=== PATIENT | male | born 1980 | race Caucasian/White ===

== ENCOUNTER 2016-08-05 16:20 | Emergency (ER) | payer OTHER ==
[~2016-08-05] VITALS: Ht 170.2 cm; Wt 115.8 kg
[2016-08-05 16:27] VITALS: TEMP 37.1; Ht 170.2 cm; Wt 115.8 kg
[2016-08-05] MEDS ORDERED: CYAN500S5 PO (17:07)
[2016-08-05] MEDS ORDERED: MISCCAP80 PO (17:08)
[2016-08-05] MEDS ORDERED: MULT-506 PO (17:09)
[2016-08-05 17:14] LABS: BASO % 0.3 %; BASO ABS # 0.02 K/uL (0-0.2); COMPLETE YES; EOS % 1.3 %; HEMATOCRIT 40.3 % (42-52); IG% 0.4 %; LYMPH ABS # 2.91 K/uL (1.2-3.4); MEAN CELL VOLUME 86.3 fL (80-100); MEAN CORPUSCULAR HEMOGLOBIN 29.8 pg (25-34); MEAN CORPUSCULAR HGB CONC 34.5 g/dl (32-36); MEAN PLATELET VOLUME 9.3 fL (7.4-10.4); MONO % 8.5 %; NEUT % 51.5 %; PLATELET COUNT 293 K/uL (130-400); RED BLOOD COUNT 4.67 M/uL (4.7-6.1); WHITE BLOOD COUNT 7.66 K/uL (4.8-10.8)
[2016-08-05] MEDS ORDERED: [UNRECOGNIZED DRUG - OTHER] PO (17:14)
[2016-08-05] MEDS ORDERED: GARC1TAB PO (17:15)
[2016-08-05 17:18] LABS: INR 0.9 (0.9-1.1); PARTIAL THROMBOPLASTIN RATIO 1.1; PROTHROMBIN TIME (PATIENT) 10.1 SECONDS (9.0-12.0)
[2016-08-05 17:30] LABS: BUN/CREATININE RATIO 16.5 (10-20); CREATININE 0.83 mg/dl (0.60-1.40); POTASSIUM 3.8 mmol/L (3.5-5.1)
[2016-08-05 17:33] LABS: ALB/GLOB RATIO 0.9 (0.9-2)
--- NOTE | 2016-08-05 17:51 | EMERGENCY ROOM VISIT NOTE ---
ED Visit Note First contact with patient: 16:36 Patient evaluated with physician assistant front end manager. He is noted to have gradual onset of a symmetric lower extremity nonblanching rash characterized by pinpoint to roughly 1 cm sized lesions which are symmetrical. He notes he had a fever several days ago before onset of the rash. He took one dose of a leftover antibiotic after he fever and rash story started. He denies any other complaints. There is no murmur on exam. I agree with plan for prompt outpatient follow-up with the understanding the patient should return for any worsening worrisome symptoms. Consideration given to vasculitis. Blood cultures are pending.
[2016-08-05 18:08] LABS: C-REACTIVE PROTEIN 7.25 mg/dl (0-0.29)
[2016-08-05 18:35] VITALS: BP 137/78; PULSE 63; O2SAT 100
[2016-08-05] MEDS ORDERED: DOXYCYCLINE HYCLATE 100 MG CAP PO STA (18:58)
[2016-08-05 19:07] LABS: LYME DISEASE AB IGG NEG (NEG); LYME DISEASE AB IGM NEG (NEG)
[2016-08-05] MEDS ORDERED: DOXY100C PO (19:08)
--- NOTE | 2016-08-05 19:09 | EMERGENCY ROOM VISIT NOTE ---
History First contact with patient: 16:36 Chief Complaint: RASH Stated Complaint: LEG RASH, BURN BOTH LEGS, LITTLE ON BELLY History of Present Illness The patient is a 35 year old male who presents to the Emergency Room with complaints of a rash which began 2 days ago. The patient states that he had flulike symptoms 4-5 days ago. He states that those symptoms resolved, and 2 days later he developed a rash. He states that 2 days ago, there were a few red spots on his legs. Since then, he has developed multiple red areas on both of his legs as well as on his lower abdomen. He states that the legs burn slightly, but denies significant pain. He denies any itching. He denies any new medications, new foods, or new environmental exposures. He denies any history of a similar rash. He denies any fevers/chills, chest pain, shortness of breath, abdominal pain, nausea or vomiting. Review of Systems A complete 10-point Review of Systems was discussed with the patient, with pertinent positives and negatives listed in the History of Present Illness. All remaining Review of Systems questions can be considered negative unless otherwise specified. Social History Smoking Status: Former Smoker Current/Historical Medications Scheduled Cyanocobalamin (Vitamin B-12), 500 MCG PO DAILY Doxycycline Hyclate (Vibramycin), 100 MG PO BID Garcinia Cambogia-Chromium (Garcinia Cambogia), 1 TAB PO TID Multivitamin (Multivitamin), 1 TAB PO DAILY Probiotic Product (Probiotic), 1 CAP PO DAILY [Argon Max], 1 TAB PO BID Allergies Coded Allergies: No Known Allergies (Unverified , 08/05/16) Physical Exam Vital Signs Date Time Temp Pulse Resp B/P Pulse Ox O2 Delivery O2 Flow Rate FiO2 08/05/16 18:35 63 16 137/78 100 Room Air 08/05/16 16:27 37.1 76 18 142/90 98 Room Air Physical Exam VITALS: Vitals are noted on the nurse's note and reviewed by myself. Vital signs stable. GENERAL: This is a 35-year-old male, in no acute distress, nondiaphoretic, well- developed well-nourished. SKIN: There is an erythematous, maculopapular nonblanching rash to bilateral lower extremities. There are larger macules and papules in the distal legs. There are a few lesions with a vesicular appearance. The rash extends up both entire legs and onto the lower abdomen slightly. No drainage. HEENT: Normocephalic. PERRLA. EOMI. Nares patent. Mucous membranes moist. Neck is supple without nuchal rigidity. HEART: Regular rate and rhythm without murmurs gallops or rubs. LUNGS: Clear to auscultation bilaterally without wheezes, rales or rhonchi. NEURO: Patient was alert and oriented to person place and time. Normal sensation to light and sharp touch. Medical Decision & Procedures Laboratory Results 08/05/16 16:56 Red Blood Count 4.67, Mean Corpuscular Volume 86.3, Mean Corpuscular Hemoglobin 29.8, Mean Corpuscular Hemoglobin Concent 34.5, Mean Platelet Volume 9.3, Neutrophils (%) (Auto) 51.5, Lymphocytes (%) (Auto) 38.0, Monocytes (%) (Auto) 8.5, Eosinophils (%) (Auto) 1.3, Basophils (%) (Auto) 0.3, Neutrophils # (Auto) 3.95, Lymphocytes # (Auto) 2.91, Monocytes # (Auto) 0.65, Eosinophils # (Auto) 0.10, Basophils # (Auto) 0.02 08/05/16 16:56 Test 08/05/16 16:56 White Blood Count 7.66 K/uL (4.8-10.8) Red Blood Count 4.67 M/uL (4.7-6.1) Hemoglobin 13.9 g/dL (14.0-18.0) Hematocrit 40.3 % (42-52) Mean Corpuscular Volume 86.3 fL (80-100) Mean Corpuscular Hemoglobin 29.8 pg (25-34) Mean Corpuscular Hemoglobin Concent 34.5 g/dl (32-36) Platelet Count 293 K/uL (130-400) Mean Platelet Volume 9.3 fL (7.4-10.4) Neutrophils (%) (Auto) 51.5 % Lymphocytes (%) (Auto) 38.0 % Monocytes (%) (Auto) 8.5 % Eosinophils (%) (Auto) 1.3 % Basophils (%) (Auto) 0.3 % Neutrophils # (Auto) 3.95 K/uL (1.4-6.5) Lymphocytes # (Auto) 2.91 K/uL (1.2-3.4) Monocytes # (Auto) 0.65 K/uL (0.11-0.59) Eosinophils # (Auto) 0.10 K/uL (0-0.5) Basophils # (Auto) 0.02 K/uL (0-0.2) RDW Standard Deviation 42.0 fL (36.4-46.3) RDW Coefficient of Variation 13.3 % (11.5-14.5) Immature Granulocyte % (Auto) 0.4 % Immature Granulocyte # (Auto) 0.03 K/uL (0.00-0.02) Erythrocyte Sedimentation Rate 48 mm/hr (0-14) Prothrombin Time 10.1 SECONDS (9.0-12.0) Prothromb Time International Ratio 0.9 (0.9-1.1) Activated Partial Thromboplast Time 29.5 SECONDS (21.0-31.0) Partial Thromboplastin Ratio 1.1 Anion Gap 7.0 mmol/L (3-11) Est Creatinine Clear Calc Drug Dose 149.6 ml/min Estimated GFR () 131.2 Estimated GFR (Non- 113.2 BUN/Creatinine Ratio 16.5 (10-20) Calcium Level 9.0 mg/dl (8.5-10.1) Total Bilirubin 0.4 mg/dl (0.2-1) Aspartate Amino Transf (AST/SGOT) 17 U/L (15-37) Alanine Aminotransferase (ALT/SGPT) 33 U/L (12-78) Alkaline Phosphatase 87 U/L (45-117) C-Reactive Protein 7.25 mg/dl (0-0.29) Total Protein 7.9 gm/dl (6.4-8.2) Albumin 3.7 gm/dl (3.4-5.0) Globulin 4.2 gm/dl (2.5-4.0) Albumin/Globulin Ratio 0.9 (0.9-2) Procalcitonin 0.08 ng/mL (0-0.5) Lyme Disease IgG Antibody NEG (NEG) Lyme Disease IgM Antibody NEG (NEG) Medications Administered Medications (Trade) Dose Ordered Sig/Gabbi Route Start Time Stop Time Status Last Admin Dose Admin Doxycycline Hyclate (Vibramycin Cap) 200 mg NOW STAT PO 08/05/16 18:58 08/05/16 19:00 DC 08/05/16 19:16 200 MG Medical Decision Differential diagnosis includes allergic dermatitis, viral exanthem, ITP, TTP, HSP, endocarditis, vasculitis, Lyme disease, among others. The patient was evaluated as above. Labs were drawn and IV access was obtained. The patient is a 35-year-old male who presents today complaining of a rash to bilateral lower extremities which is extending onto his lower abdomen. The rash does not kurt. He does report he had symptoms of a flulike illness earlier this week, but they have now resolved. Labs revealed no leukocytosis, anemia or thrombocytopenia. LFTs were within normal limits. Dr. Alvares also examined the patient and recommended drawing blood cultures to rule out endocarditis. The patient does not have a murmur or chest pain and I feel that endocarditis is unlikely. An ESR and CRP were performed and were elevated, but this is a very nonspecific finding. I feel the patient's symptoms are likely secondary to vasculitis. He will be placed on doxycycline to prevent any secondary infection. He was instructed to follow-up closely with his primary care provider this week or return here for worsening symptoms. Based on the patient's presentation, lab results, and imaging studies, I feel the patient is stable for outpatient treatment. Discharge instructions were reviewed with the patient. The patient verbalized understanding of my assessment and treatment plan and was discharged home in good condition. Impression Primary Impression: Rash and nonspecific skin eruption Departure Information Dispostion Home / Self-Care Condition GOOD Prescriptions Doxycycline Hyclate (VIBRAMYCIN) 100 Mg Cap 100 MG PO BID for 10 Days, #20 CAP Prov: Neena Miller ., AMBER 08/05/16 Referrals No Doctor, Assigned (PCP) Patient Instructions [facility] Additional Instructions You were prescribed doxycycline to be taken twice daily for the next 10 days. This is an antibiotic. All antibiotics have the potential to cause diarrhea. Stop this medication and contact a medical provider if you were to develop any significant adverse side effects including: wheezing, shortness of breath, passing out, vomiting, or a diffuse rash. Always take antibiotics as directed and COMPLETE the ENTIRE course regardless of the improvement of your symptoms. You must follow-up with your primary care provider within 2 days for further evaluation. If your rash worsens or you develop fevers or any other new/concerning symptoms , return to the emergency Department for further evaluation.
[2016-08-10] MEDS ORDERED: CETI10TA10 PO (17:56)
[2016-08-10] MEDS ORDERED: METH4PAK PO (17:56)
[2016-08-18] MEDS ORDERED: PRED10TA PO (13:34)
[2016-08-18] MEDS ORDERED: OMEP20TA PO (13:34)
[2016-08-18] MEDS ORDERED: OXYC-57 PO (13:34)
== END 2016-08-05 19:25 | disposition home or self-care (01) ==
LOC: C.EDB 16:22 → C.EDD 19:25
DX: R21 Rash and other nonspecific skin eruption (principal); Z87.891 Personal history of nicotine dependence

== ENCOUNTER 2016-08-09 12:23 | Inpatient (IN) | payer OTHER ==
[~2016-08-09] VITALS: Ht 170.2 cm; Wt 114.8 kg
[~2016-08-09 12:23] MED LIST: CYAN500S5 PO; DOXY100C PO; GARC1TAB PO; MISCCAP80 PO; MULT-506 PO; [UNRECOGNIZED DRUG - OTHER] PO
[2016-08-09] MEDS ORDERED: KETOROLAC TROMETHAMINE 30 MG/ML VIAL IV STA (13:32)
[2016-08-09] MEDS ORDERED: SODIUM CHLORIDE 0.9% 1000ML 1,000 ML IV STA (13:32)
[2016-08-09] MEDS ORDERED: METHYLPREDNISOLONE 125 MG VIAL IV STA (13:32)
--- NOTE | 2016-08-09 13:33 | EMERGENCY ROOM VISIT NOTE ---
History Report prepared by Juanita: Richard Espino Under the Supervision of: Dr. Jah Hopper M.D. First contact with patient: 13:14 Chief Complaint: RASH Stated Complaint: RASH W/MORE PAIN AND RASH IS SPREADING History of Present Illness The patient is a 35 year old male who presents to the Emergency Room with complaints of a worsening rash for the past couple of days. The patient states that the rash started on the bottom of his legs, and it has spread up to his chest. The patient states that he saw a doctor two days ago, and they said that there was blood in his urine. He states that he was given steroids and antibiotics, and he has not taken the steroids yet. The patient additionally complains of muscle pains in both arms and his thighs. He additionally states that he was sick two days ago, and he was vomiting and had a fever. Source of History: patient Onset: a couple of days ago Position: other (global) Quality: other (rash) Associated Symptoms: + urinary symptoms Review of Systems See HPI for pertinent positives & negatives. A total of 10 systems reviewed and were otherwise negative. Past Medical & Surgical Medical Problems: (1) Depression (2) Rash Family History Cancer Heart disease Hypertension Kidney disease Kidney stones Social History Smoking Status: Never Smoker Alcohol Use: occasionally Housing Status: lives with friends Occupation Status: employed Current/Historical Medications Scheduled Cyanocobalamin (B12), 500 MCG PO DAILY Doxycycline Hyclate (Vibramycin), 100 MG PO BID Garcinia Cambogia-Chromium (Garcinia Cambogia), 2 TABS PO AC Multiple Vitamins W/ Minerals (Multivitamin Adults), 1 TAB PO DAILY Allergies Coded Allergies: No Known Allergies (Unverified , 08/09/16) Physical Exam Vital Signs Date Time Temp Pulse Resp B/P Pulse Ox O2 Delivery O2 Flow Rate FiO2 08/09/16 15:00 37.0 86 18 133/81 Room Air 08/09/16 14:27 76 130/79 98 Room Air 08/09/16 14:18 76 08/09/16 12:28 36.8 97 18 127/76 98 Room Air Physical Exam GENERAL: Patient is a healthy-appearing well-nourished HEAD: Normocephalic atraumatic EYES: Ocular movements intact pupils equal and react to light OROPHARYNX mucous membranes are moist no exudates present no erythema or edema present NECK: Supple no nuchal rigidity CHEST: Good equal expansion LUNGS: Clear and equal to auscultation CARDIAC: Normal S1 and S2 ABDOMEN: Soft nontender no guarding BACK: No CVA tenderness EXTREMITIES: No pain upon palpation normal muscle strength in all groups no clubbing cyanosis or edema NEURO: Patient is following commands is answering questions appropriately. Alert and oriented x3 Cranial Nerves 2-12 grossly intact SKIN: Petechial like rash that is heavier on the legs but spares the soles of the feet and the palms of the hands. Non-urticarial Medical Decision & Procedures Laboratory Results Test 08/09/16 13:50 Immature Granulocyte % (Auto) 0.4 % White Blood Count 7.78 K/uL (4.8-10.8) Red Blood Count 4.55 M/uL (4.7-6.1) Hemoglobin 13.7 g/dL (14.0-18.0) Hematocrit 40.0 % (42-52) Mean Corpuscular Volume 87.9 fL (80-100) Mean Corpuscular Hemoglobin 30.1 pg (25-34) Mean Corpuscular Hemoglobin Concent 34.3 g/dl (32-36) Platelet Count 346 K/uL (130-400) Mean Platelet Volume 8.9 fL (7.4-10.4) Neutrophils (%) (Auto) 58.7 % Lymphocytes (%) (Auto) 29.4 % Monocytes (%) (Auto) 9.9 % Eosinophils (%) (Auto) 1.2 % Basophils (%) (Auto) 0.4 % Neutrophils # (Auto) 4.57 K/uL (1.4-6.5) Lymphocytes # (Auto) 2.29 K/uL (1.2-3.4) Monocytes # (Auto) 0.77 K/uL (0.11-0.59) Eosinophils # (Auto) 0.09 K/uL (0-0.5) Basophils # (Auto) 0.03 K/uL (0-0.2) Immature Granulocyte # (Auto) 0.03 K/uL (0.00-0.02) Erythrocyte Sedimentation Rate 46 mm/hr (0-14) Total Bilirubin 0.4 mg/dl (0.2-1) Direct Bilirubin < 0.1 mg/dl (0-0.2) Aspartate Amino Transf (AST/SGOT) 16 U/L (15-37) Alanine Aminotransferase (ALT/SGPT) 27 U/L (12-78) Alkaline Phosphatase 86 U/L (45-117) C-Reactive Protein 13.10 mg/dl (0-0.29) Total Protein 7.6 gm/dl (6.4-8.2) Albumin 3.4 gm/dl (3.4-5.0) Medications Administered Medications (Trade) Dose Ordered Sig/Gabbi Route Start Time Stop Time Status Last Admin Dose Admin Methylprednisolone Sodium Succinate (Solu-Medrol IV) 125 mg NOW STAT IV 08/09/16 13:32 08/09/16 13:34 DC 08/09/16 13:51 125 MG Ketorolac Tromethamine 30 mg 30 mg NOW STAT IV 08/09/16 13:32 08/09/16 13:34 DC 08/09/16 13:51 30 MG Sodium Chloride (Nss 1000ml) 1,000 ml @ 999 mls/hr Q1H1M STAT IV 08/09/16 13:32 08/09/16 14:32 DC 08/09/16 13:53 999 MLS/HR ED Course 1314: Past medical records reviewed. The patient was evaluated in room B6. A complete history and physical examination was performed. Medical Decision Differential diagnosis: Etiologies such as contact dermatitis, viral exanthem, urticaria, allergic reaction, Salamanca-John syndrome, toxic epidermal necrolysis, erythema multiforme, cellulitis, scabies, HSV, varicella, zoster, eczema, staph scalded skin syndrome, fungal infection, as well as others were entertained. This is a 35-year-old male who presents emergency department complaining of a painful rash that has progressed over the past several days. The rash appears to be a vasculitis on examination. For this reason the patient was started on Solu-Medrol. The patient is having pain walking around therefore did discuss the case with hospitalist who agreed to admit the patient. Patient was in agreement with the treatment plan. Impression Primary Impression: Rash Scribe Attestation The scribe's documentation has been prepared under my direction and personally reviewed by me in its entirety. I confirm that the note above accurately reflects all work, treatment, procedures, and medical decision making performed by me. Departure Information Dispostion Home / Self-Care Referrals Ashia Montero D.O. (PCP) Patient Instructions [facility]
[2016-08-09 14:15] LABS: BASO % 0.4 %; BASO ABS # 0.03 K/uL (0-0.2); COMPLETE YES; EOS % 1.2 %; IG% 0.4 %; LYMPH % 29.4 %; LYMPH ABS # 2.29 K/uL (1.2-3.4); MEAN CELL VOLUME 87.9 fL (80-100); MEAN CORPUSCULAR HEMOGLOBIN 30.1 pg (25-34); MEAN CORPUSCULAR HGB CONC 34.3 g/dl (32-36); MEAN PLATELET VOLUME 8.9 fL (7.4-10.4); MONO % 9.9 %; NEUT % 58.7 %; PLATELET COUNT 346 K/uL (130-400); RED BLOOD COUNT 4.55 M/uL (4.7-6.1); WHITE BLOOD COUNT 7.78 K/uL (4.8-10.8)
[2016-08-09 14:33] LABS: BUN/CREATININE RATIO 15.5 (10-20); CREATININE 0.88 mg/dl (0.60-1.40); POTASSIUM 4.2 mmol/L (3.5-5.1)
[2016-08-09 15:00] VITALS: BP 133/81; PULSE 86; TEMP 37; Ht 170.2 cm; Wt 114.8 kg
[2016-08-09 15:43] LABS: ALKALINE PHOSPHATASE 86 U/L (45-117); ALT/SGPT 27 U/L (12-78); AST/SGOT 16 U/L (15-37)
[2016-08-09] MEDS ORDERED: ONDANSETRON INJ 2 MG/ML 2 ML VIAL IV PRN (16:00)
[2016-08-09] MEDS ORDERED: CYAN100073 PO (16:09)
[2016-08-09] MEDS ORDERED: MULT-922 PO (16:09)
[2016-08-09] MEDS ORDERED: GARC1TAB PO (16:09)
[2016-08-09] MEDS: SODIUM CHLORIDE 0.9% 1000ML 1,000 ML IV SCH (16:28)
[2016-08-09] MEDS ORDERED: PIPERACILLIN/TAZOBACTAM 4.5 GM/100ML D5W IV SCH (16:30)
[2016-08-09] MEDS ORDERED: PIPERACILL/TAZOBAC CONSULT ACTIVE PRN (16:30)
[2016-08-09 17:03] LABS: URINE APPEARANCE TURBID (CLEAR); URINE COLOR DK YELLOW; URINE NITRITE NEG (NEG); URINE SPECIFIC GRAVITY 1.031 (1.000-1.030); UROBILINOGEN NEG (NEG)
[2016-08-09 17:13] LABS: URINE BILIRUBIN NEG (NEG)
[2016-08-09 17:14] LABS: MANUAL MICROSCOPIC REQUIRED? NO; REVIEW REQ? NO
--- NOTE | 2016-08-09 17:26 | History and Physical ---
History & Physical Date & Time of Service: Aug 09, 2016 at 16:10 Chief Complaint: Rash W/More Pain And Rash Is Spreading Primary Care Physician: Juan Montero D.O. History of Present Illness Source: patient This is a 35 y/o male with PMHx as outlined below who presents to the ED c/o persistent rash x 6 days. Pt reports that 6 days ago he noticed a rash to the medial aspect of his L knee. Over the next couple days the rash spread until it completely covered both legs. He describes the rash as "red spots" with some blistering. The rash causes a "burning" pain but it is not itchy. His sxs are assoc with low grade fever, fatigue, arthralgias/myalgias and mild ankle swelling. Pt was seen in the ED 4 days ago. He was discharged home with doxycycline and PCP f/u. Pt saw his PCP 2 days ago who checked bloodwork. CMP, KENNETH,CK and peripheral smear were unremarkable however pt did have blood in his urine. Pts PCP prescribed a steroid this morning and arranged for dermatology and infectious disease appointments. Pt reports that he has not started the steroid yet. The rash has now progressed to bilat upper arms and trunk. He denies any involvement of the palms of his hands or the soles of his feet. He reports that 2 days prior to developing the rash he had a 48 hr stomach bug with fevers/chills and N/V. Pt denies any known allergies, recent medication change or h/o autoimmune diseases. He denies IVDU or h/o having sex with men. Pt denies fever/chills, diaphoresis, chest pain, palpitations, SOB, wheezing, abd pain, N/V, bowel or bladder issues, LE edema ,calf pain, lightheadedness/ dizziness. In the ED, vitals are stable. Pt is afebrile with no leukocytosis. Pt will be admitted for further evaluation and treatment. 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[employer]) Allergies Coded Allergies: No Known Allergies (Unverified , 08/09/16) Home Medications Scheduled Cyanocobalamin (B12), 500 MCG PO DAILY Doxycycline Hyclate (Vibramycin), 100 MG PO BID Garcinia Cambogia-Chromium (Garcinia Cambogia), 2 TABS PO AC Multiple Vitamins W/ Minerals (Multivitamin Adults), 1 TAB PO DAILY Review of Systems Constitutional: + chills, + fatigue, + fever (low grade), No sweats, No weakness Eyes: No worsening of vision ENT: No hearing loss Respiratory: No cough, No shortness of breath Cardiovascular: No chest pain, No claudication, No edema Abdomen: + nausea (resolved), + vomiting (resolved), No GI bleeding, No constipation, No diarrhea, No pain Musculoskeletal: + joint pain (bilat ankles with assoc swelling), + muscle pain , No calf pain Genitourinary - Male: No dysuria Neurologic: No weakness Psychiatric: No depression symptoms Endocrine: + fatigue Hematologic / Lymphatic: No abnormal bleeding/bruising Integumentary: + new/changing skin lesions (see HPI) Physical Exam Vital Signs Date Time Temp Pulse Resp B/P Pulse Ox O2 Delivery O2 Flow Rate FiO2 08/09/16 14:27 76 130/79 98 Room Air 08/09/16 14:18 76 08/09/16 12:28 36.8 97 18 127/76 98 Room Air General Appearance: WD/WN, no apparent distress, + obese, + pertinent finding ( Pt is sitting in bed with friend at bedside ) Head: normocephalic, atraumatic Eyes: normal inspection ENT: hearing grossly normal Neck: supple Respiratory/Chest: chest non-tender, lungs clear, normal breath sounds, no respiratory distress Cardiovascular: regular rate, rhythm, no edema, no murmur Abdomen/GI: normal bowel sounds, non tender, soft Back: normal inspection Extremities/Musculoskelatal: no calf tenderness, + pertinent finding (see skin) Neurologic/Psych: alert, normal mood/affect, oriented x 3 Skin: + pertinent finding (petechial rash noted to bilat LE extending to bilat UE and part of the way up the trunk; small blisters noted with no drainage; does not kurt ; no involvement of palms of hands or soles of feet) Diagnostics Laboratory Results Results Past 24 Hours Test 08/09/16 13:50 08/09/16 16:00 Range/Units White Blood Count 7.78 4.8-10.8 K/uL Red Blood Count 4.55 4.7-6.1 M/uL Hemoglobin 13.7 14.0-18.0 g/dL Hematocrit 40.0 42-52 % Mean Corpuscular Volume 87.9 80-100 fL Mean Corpuscular Hemoglobin 30.1 25-34 pg Mean Corpuscular Hemoglobin Concent 34.3 32-36 g/dl Platelet Count 346 130-400 K/uL Mean Platelet Volume 8.9 7.4-10.4 fL Neutrophils (%) (Auto) 58.7 % Lymphocytes (%) (Auto) 29.4 % Monocytes (%) (Auto) 9.9 % Eosinophils (%) (Auto) 1.2 % Basophils (%) (Auto) 0.4 % Neutrophils # (Auto) 4.57 1.4-6.5 K/uL Lymphocytes # (Auto) 2.29 1.2-3.4 K/uL Monocytes # (Auto) 0.77 0.11-0.59 K/uL Eosinophils # (Auto) 0.09 0-0.5 K/uL Basophils # (Auto) 0.03 0-0.2 K/uL RDW Standard Deviation 42.6 36.4-46.3 fL RDW Coefficient of Variation 13.2 11.5-14.5 % Immature Granulocyte % (Auto) 0.4 % Immature Granulocyte # (Auto) 0.03 0.00-0.02 K/uL Sodium Level 142 136-145 mmol/L Potassium Level 4.2 3.5-5.1 mmol/L Chloride Level 106 98-107 mmol/L Carbon Dioxide Level 29 21-32 mmol/L Anion Gap 7.0 3-11 mmol/L Blood Urea Nitrogen 14 7-18 mg/dl Creatinine 0.88 0.60-1.40 mg/dl Est Creatinine Clear Calc Drug Dose 140.5 ml/min Estimated GFR () 128.1 Estimated GFR (Non- 110.5 BUN/Creatinine Ratio 15.5 10-20 Random Glucose 68 70-99 mg/dl Calcium Level 9.0 8.5-10.1 mg/dl Total Bilirubin 0.4 0.2-1 mg/dl Direct Bilirubin < 0.1 0-0.2 mg/dl Aspartate Amino Transf (AST/SGOT) 16 15-37 U/L Alanine Aminotransferase (ALT/SGPT) 27 12-78 U/L Alkaline Phosphatase 86 45-117 U/L Total Protein 7.6 6.4-8.2 gm/dl Albumin 3.4 3.4-5.0 gm/dl Microbiology Results 08/09/16 Blood Culture, Received Pending 08/09/16 Blood Culture, Received Pending Impression Assessment and Plan DIFFUSE PURPURIC RASH; LIKELY SECONDARY TO VASCULITIS -presents with purpuric rash assoc with low grade fevers, myalgias and arthralgias following a recent viral illness -admit to med/surg -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 Mcfarlane-pending input H/O BIPOLAR DISORDER -not on any medications DVT PROPHYLAXIS -SCDs only for now DISPO Pt seen in collaboration with Dr. Mullins. Please see his addendum for further details. Thanks! Agree with above h and P. 35m presents with rash predominantly in lower extremity started about a week ago but spreading to his arms now. Had low grade fevers. [place] like had stomach bug few days ago. denies any joint pains now. Was in [place] and prescribed doxycycline. Saw the PCP and workup uriz and was told that itv was negative except some hematuria. Currently complains of pain in his lower extremities. No chest pain or sob. Denies any recent unprotected sex. 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 Y/N: Yes Risk Level: Low
[2016-08-09 17:27] VITALS: O2SAT 96
[2016-08-09 19:47] LABS: INFLUENZA A PCR Neg for Influ A (NEG); INFLUENZA B PCR Neg for Influ B (NEG)
[2016-08-09] MEDS: ACETAMINOPHEN 325 MG TAB PO PRN (20:31)
[2016-08-09] MEDS: METHYLPREDNISOLONE IV 40 MG in SYRINGE 0 ML IV SCH (21:52)
[2016-08-09] MEDS: PIPERACILL/TAZOBAC IV 4.5 GM in DEXTROSE 5% 100ML 100 ML IV SCH (21:52)
[2016-08-10 00:08] VITALS: BP 116/71; PULSE 71; TEMP 36.6; O2SAT 93
[2016-08-10] MEDS: SODIUM CHLORIDE 0.9% 1000ML 1,000 ML IV SCH ×2 (00:52→12:24)
[2016-08-10 06:13] LABS: HEMATOCRIT 37.6 % (42-52); MEAN CELL VOLUME 86.8 fL (80-100); MEAN CORPUSCULAR HGB CONC 34.6 g/dl (32-36); PLATELET COUNT 385 K/uL (130-400); RED BLOOD COUNT 4.33 M/uL (4.7-6.1); WHITE BLOOD COUNT 10.13 K/uL (4.8-10.8)
[2016-08-10] MEDS: METHYLPREDNISOLONE IV 40 MG in SYRINGE 0 ML IV SCH ×2 (06:29→13:52)
[2016-08-10] MEDS: PIPERACILL/TAZOBAC IV 4.5 GM in DEXTROSE 5% 100ML 100 ML IV SCH ×2 (06:29→13:53)
[2016-08-10 06:38] LABS: BUN/CREATININE RATIO 15.7 (10-20); CALCIUM 8.7 mg/dl (8.5-10.1); CREATININE 0.85 mg/dl (0.60-1.40); POTASSIUM 4.3 mmol/L (3.5-5.1)
[2016-08-10 08:02] VITALS: BP 127/80; PULSE 70; TEMP 36.8; O2SAT 99
[2016-08-10 11:50] VITALS: BP 147/85; PULSE 90; TEMP 36.6; O2SAT 96
[2016-08-10] MEDS: ACETAMINOPHEN 325 MG TAB PO PRN (12:25)
[2016-08-10 15:26] VITALS: BP 147/85; PULSE 90; TEMP 36.6; O2SAT 96
[2016-08-10 15:36] VITALS: BP 120/76; PULSE 68; TEMP 36.7; O2SAT 95
[2016-08-10] MEDS ORDERED: CETI10TA10 PO (17:56)
[2016-08-10] MEDS ORDERED: METH4PAK PO (17:56)
--- NOTE | 2016-08-10 17:57 | Discharge Instructions ---
Discharge Instructions Admission Reason for Admission: RASH Discharge Discharge Diagnosis / Problem: Rash, Joint Pain - possible viral infection; dermatitis Discharge Goals Goal(s): Decrease discomfort, Improve function Activity Recommendations Activity Limitations: resume your previous activity . Instructions / Follow-Up Instructions / Follow-Up Please follow-up with your primary care physician Take your medrol dose bony as prescribed Take over the counter Zyrtec Current Hospital Diet Patient's current hospital diet: Regular Diet Discharge Diet Recommended Diet: Regular Diet Pending Studies Studies pending at discharge: no Medical Emergencies . Who to Call and When: Medical Emergencies: If at any time you feel your situation is an emergency, please call 911 immediately. . Non-Emergent Contact Non-Emergency issues call your: Primary Care Provider . . "Provider Documentation" section prepared by Mae Amato. VTE Core Measure Inpt VTE Proph given/why not?: Treatment not indicated
--- NOTE | 2016-08-10 18:07 | Progress Note ---
Subjective Date of Service: Aug 10, 2016. Subjective Pt evaluation today including: conversation w/ patient, physical exam, lab review, review of studies, review of inpatient medication list Saw/examined the patient in room 405 Patient presented with a rash that began on the lower extremities and worked its way up to the rest of his body He states that he also developed some joint pain while this occurred, throughout body, including ankles he was given medrol dosepak by his primary care provider, but he did not start this and came to the ER instead Was given IV steroids and antibiotics for breaks in skin in the lower extremities Today, he feels fine, rash is not itchy, pain has subsided Very eager to go home Review of Systems Constitutional: No chills, No fever Respiratory: No cough, No shortness of breath, No sputum Cardiac: No chest pain, No edema, No palpitations Abdomen: No diarrhea, No nausea, No pain, No vomiting Musculoskeletal: + joint pain Heme: No abnormal bleeding/bruising Skin: + rash Medications Current Inpatient Medications Medications (Trade) Dose Ordered Sig/Gabbi Route Start Time Stop Time Status Last Admin Dose Admin Acetaminophen (Tylenol Tab) 650 mg Q4H PRN PO 08/09/16 16:00 09/08/16 15:59 08/10/16 12:25 650 MG Ondansetron HCl 4 mg 4 mg Q6H PRN IV 08/09/16 16:00 09/08/16 15:59 Piperacillin Sod/ Tazobactam Sod 4.5 gm/Dextrose 120 ml @ 30 mls/hr Q8H IV 08/09/16 22:00 08/19/16 21:59 08/10/16 13:53 30 MLS/HR Sodium Chloride 1,000 ml @ 100 mls/hr Q10H IV 08/09/16 16:15 09/08/16 16:14 08/10/16 12:24 100 MLS/HR Methylprednisolone Sodium Succinate/ Syringe (Solu-Medrol IV/ Syringe) 0.64 ml @ 1.5 mls/min Q8H IV 08/09/16 22:00 09/08/16 16:14 08/10/16 13:52 1.5 MLS/MIN Piperacillin Sod/ Tazobactam Sod (Consult) 1 ea UD PRN N/A 08/09/16 16:30 09/08/16 16:29 Objective Vital Signs Date Time Temp Pulse Resp B/P Pulse Ox O2 Delivery O2 Flow Rate FiO2 08/10/16 15:36 36.7 68 18 120/76 95 Room Air 08/10/16 15:26 36.6 90 16 96 Room Air 08/10/16 11:50 36.6 90 16 147/85 96 Room Air 08/10/16 09:38 Room Air 08/10/16 08:02 36.8 70 16 127/80 99 08/10/16 00:08 36.6 71 20 116/71 93 Room Air 08/10/16 00:00 Room Air Physical Exam General Appearance: no apparent distress Respiratory/Chest: lungs clear, normal breath sounds, no respiratory distress, no accessory muscle use Cardiovascular: regular rate, rhythm, no edema, no murmur Abdomen: normal bowel sounds, non tender, soft Extremities: non-tender, normal inspection, no pedal edema Neurologic/Psychiatric: no motor/sensory deficits, alert, normal mood/affect Skin: + rash, + pertinent finding (maculopapular rash, some blistering in the lower part of legs) Lymphatic: no adenopathy Laboratory Results Last 24 Hours Test 08/09/16 18:00 08/10/16 05:24 08/10/16 13:31 Influenza Type A (RT-PCR) Neg for Influ A Influenza Type B (RT-PCR) Neg for Influ B White Blood Count 10.13 K/uL Red Blood Count 4.33 M/uL Hemoglobin 13.0 g/dL Hematocrit 37.6 % Mean Corpuscular Volume 86.8 fL Mean Corpuscular Hemoglobin 30.0 pg Mean Corpuscular Hemoglobin Concent 34.6 g/dl RDW Standard Deviation 41.8 fL RDW Coefficient of Variation 13.0 % Platelet Count 385 K/uL Mean Platelet Volume 9.0 fL Sodium Level 143 mmol/L Potassium Level 4.3 mmol/L Chloride Level 109 mmol/L Carbon Dioxide Level 25 mmol/L Anion Gap 9.0 mmol/L Blood Urea Nitrogen 13 mg/dl Creatinine 0.85 mg/dl Est Creatinine Clear Calc Drug Dose 145.4 ml/min Estimated GFR () 129.9 Estimated GFR (Non- 112.1 BUN/Creatinine Ratio 15.7 Random Glucose 124 mg/dl Calcium Level 8.7 mg/dl Assessment and Plan This is a 35 year old male who presents with rash and multiple joint pains Maculopapular Rash mildly raised rash that started on the lower extremities and spread cephalad it is not pruritic, mildly painful, but now is pain-free associated with multiple joint pains Mild improvement with IV steroids plan for the patient is to discharge him home with a medrol dosepak Patient told to take OTC Zyrtec as well PCP follow-up, may need dermatology vs. rheumatology f/u FULL CODE Discharge planning: home
--- NOTE | 2016-08-10 18:10 | Discharge Summary ---
Discharge Summary Admission Date: Aug 09, 2016 at 15:59 Discharge Date: Aug 10, 2016 Discharge Disposition: Home Principal Diagnosis: Rash/Multiple Joint Pain, likely viral infection/dermatitis Medication Reconciliation New Medications: Cetirizine Hcl (Zyrtec) 10 Mg Tab 1 TAB PO DAILY for 30 Days, #30 TAB 5 Refills Methylprednisolone (Medrol Dosepak) 4 Mg Francis 1 PKT PO DAILY, #1 PKT Continued Medications: Cyanocobalamin (B12) 1,000 Mcg Tab 500 MCG PO DAILY Doxycycline Hyclate (Vibramycin) 100 Mg Cap 100 MG PO BID for 10 Days, #20 CAP Garcinia Cambogia-Chromium (Garcinia Cambogia) 1 Tab Tab 2 TABS PO AC Multiple Vitamins W/ Minerals (Multivitamin Adults) 1 Tab Tab 1 TAB PO DAILY Admission Information HPI (per Admitting provider): This is a 35 y/o male with PMHx as outlined below who presents to the ED c/o persistent rash x 6 days. Pt reports that 6 days ago he noticed a rash to the medial aspect of his L knee. Over the next couple days the rash spread until it completely covered both legs. He describes the rash as "red spots" with some blistering. The rash causes a "burning" pain but it is not itchy. His sxs are assoc with low grade fever, fatigue, arthralgias/myalgias and mild ankle swelling. Pt was seen in the ED 4 days ago. He was discharged home with doxycycline and PCP f/u. Pt saw his PCP 2 days ago who checked bloodwork. CMP, KENNETH,CK and peripheral smear were unremarkable however pt did have blood in his urine. Pts PCP prescribed a steroid this morning and arranged for dermatology and infectious disease appointments. Pt reports that he has not started the steroid yet. The rash has now progressed to bilat upper arms and trunk. He denies any involvement of the palms of his hands or the soles of his feet. He reports that 2 days prior to developing the rash he had a 48 hr stomach bug with fevers/chills and N/V. Pt denies any known allergies, recent medication change or h/o autoimmune diseases. He denies IVDU or h/o having sex with men. Pt denies fever/chills, diaphoresis, chest pain, palpitations, SOB, wheezing, abd pain, N/V, bowel or bladder issues, LE edema ,calf pain, lightheadedness/ dizziness. In the ED, vitals are stable. Pt is afebrile with no leukocytosis. Pt will be admitted for further evaluation and treatment. Physical Exam (per Admitting): General Appearance: WD/WN, no apparent distress, + obese, + pertinent finding (Pt is sitting in bed with friend at bedside ) Head: normocephalic, atraumatic Eyes: normal inspection ENT: hearing grossly normal Neck: supple Respiratory/Chest: chest non-tender, lungs clear, normal breath sounds, no respiratory distress Cardiovascular: regular rate, rhythm, no edema, no murmur Abdomen/GI: normal bowel sounds, non tender, soft Back: normal inspection Extremities/Musculoskelatal: no calf tenderness, + pertinent finding (see skin) Neurologic/Psych: alert, normal mood/affect, oriented x 3 Skin: + pertinent finding (petechial rash noted to bilat LE extending to bilat UE and part of the way up the trunk; small blisters noted with no drainage ; does not kurt ; no involvement of palms of hands or soles of feet) Hospital Course This is a 35 year old male who presents with rash and multiple joint pains Maculopapular Rash mildly raised rash that started on the lower extremities and spread cephalad it is not pruritic, mildly painful, but now is pain-free associated with multiple joint pains Mild improvement with IV steroids plan for the patient is to discharge him home with a medrol dosepak Patient told to take OTC Zyrtec as well PCP follow-up, may need dermatology vs. rheumatology f/u FULL CODE Discharge planning: home Total time spent on discharge = 25 minutes This includes examination of the patient, discharge planning, medication reconciliation, and communication with other providers. Discharge Instructions Please follow-up with your primary care physician Take your medrol dose francis as prescribed Take over the counter Zyrtec
--- NOTE | 2016-08-10 18:55 | Rheumatology Consultation ---
Rheumatology Consultation Date of Consultation: Aug 10, 2016. Reason for Consultation: Henoch-Schonlein Purpura History of Present Illness 35 yo M with history of URI symptoms for 1 week who subsequently developed petechiae and purpura on his lower extremities and abdomen. He was seen by his PCP several days ago regarding the rash. Labs done at [facility] demonstrated normal CK, negative KENNETH, and normal CBC and CMP. He had presented to the ED twice for his symptoms and was admitted for further evaluation. He complained of blood in his urine. His urinalysis showed trace blood and no cells. His blood cultures have been negative and the wound culture showed no organisms. He is feeling better and is being discharged today with medrol dose bony. 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[employer]) Review of Systems Constitutional: + fatigue, + fever Musculoskeletal: + muscle pain Allergies Coded Allergies: No Known Allergies (Unverified , 08/09/16) Medications Current Inpatient Medications Medications (Trade) Dose Ordered Sig/Gabbi Route Start Time Stop Time Status Last Admin Dose Admin Acetaminophen (Tylenol Tab) 650 mg Q4H PRN PO 08/09/16 16:00 09/08/16 15:59 08/10/16 12:25 650 MG Ondansetron HCl 4 mg 4 mg Q6H PRN IV 08/09/16 16:00 09/08/16 15:59 Piperacillin Sod/ Tazobactam Sod 4.5 gm/Dextrose 120 ml @ 30 mls/hr Q8H IV 08/09/16 22:00 08/19/16 21:59 08/10/16 13:53 30 MLS/HR Sodium Chloride 1,000 ml @ 100 mls/hr Q10H IV 08/09/16 16:15 09/08/16 16:14 08/10/16 12:24 100 MLS/HR Methylprednisolone Sodium Succinate/ Syringe (Solu-Medrol IV/ Syringe) 0.64 ml @ 1.5 mls/min Q8H IV 08/09/16 22:00 09/08/16 16:14 08/10/16 13:52 1.5 MLS/MIN Piperacillin Sod/ Tazobactam Sod (Consult) 1 ea UD PRN N/A 08/09/16 16:30 09/08/16 16:29 Physical Exam Date Time Temp Pulse Resp B/P Pulse Ox O2 Delivery O2 Flow Rate FiO2 08/10/16 15:36 36.7 68 18 120/76 95 Room Air 08/10/16 15:26 36.6 90 16 96 Room Air 08/10/16 11:50 36.6 90 16 147/85 96 Room Air 08/10/16 09:38 Room Air 08/10/16 08:02 36.8 70 16 127/80 99 08/10/16 00:08 36.6 71 20 116/71 93 Room Air 08/10/16 00:00 Room Air Eyes: bilateral eyes EOMI, bilateral eyes normal inspection ENT: normal ENT inspection Neck: supple, no adenopathy Respiratory: chest non-tender, lungs clear, normal breath sounds, no respiratory distress, no accessory muscle use Cardiovascular: regular rate, rhythm, no edema Abdomen: normal bowel sounds Musculoskeletal: No joint tenderness or swelling Skin: + rash (erythematous maculopapular rash with areas of purpura on lower extremities and abdomen) Laboratory Results Last 24 Hours Test 08/10/16 05:24 08/10/16 13:31 White Blood Count 10.13 K/uL Red Blood Count 4.33 M/uL Hemoglobin 13.0 g/dL Hematocrit 37.6 % Mean Corpuscular Volume 86.8 fL Mean Corpuscular Hemoglobin 30.0 pg Mean Corpuscular Hemoglobin Concent 34.6 g/dl RDW Standard Deviation 41.8 fL RDW Coefficient of Variation 13.0 % Platelet Count 385 K/uL Mean Platelet Volume 9.0 fL Sodium Level 143 mmol/L Potassium Level 4.3 mmol/L Chloride Level 109 mmol/L Carbon Dioxide Level 25 mmol/L Anion Gap 9.0 mmol/L Blood Urea Nitrogen 13 mg/dl Creatinine 0.85 mg/dl Est Creatinine Clear Calc Drug Dose 145.4 ml/min Estimated GFR () 129.9 Estimated GFR (Non- 112.1 BUN/Creatinine Ratio 15.7 Random Glucose 124 mg/dl Calcium Level 8.7 mg/dl Assessment & Plan Assessment & Plan: 35 yo M with viral illness and subsequent 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 Treatment is often supportive as it is a self-limited illness. Some patients can have GI or renal complications which has not occurred in this case. NSAIDs and corticosteroids can be used for pain control. He received IV steroids and is being discharged with a medrol dose bony. Recommendations 1. Agree with medrol dose bony. 2. Patient has follow-up with his PCP on Sunday. 3. Will arrange follow-up with rheumatology in 2-3 weeks. Case was discussed with Dr. Amato. Thank you for allowing rheumatology to participate in the care of this patient.
== END 2016-08-10 18:39 | disposition home or self-care (01) | DRG 813 ==
LOC: ENRESERVTM → ENRESERVDT → C.EDB 12:25 → C.4E 15:59
PROVIDERS: ADMIT Internal Medicine; ATTEND Family Medicine
DX: D69.0 Allergic purpura (principal); B34.9 Viral infection, unspecified; M79.1 Myalgia; Z87.891 Personal history of nicotine dependence; Z86.59 Personal history of other mental and behavioral disorders

== ENCOUNTER 2016-08-15 16:14 | Inpatient (IN) | payer OTHER ==
[~2016-08-15] VITALS: Ht 170.2 cm; Wt 107.0 kg
[~2016-08-15 16:14] MED LIST changes: +CETI10TA10 PO; +CYAN100073 PO; -CYAN500S5 PO; +METH4PAK PO; -MISCCAP80 PO; -MULT-506 PO; +MULT-922 PO; +PIPERACILL/TAZOBAC IV 4.5 GM in DEXTROSE 5% 100ML IV SCH; -[UNRECOGNIZED DRUG - OTHER] PO
[2016-08-15] MEDS ORDERED: MoRPHine SULFATE 10 MG/ML CARP/VIAL IV STA ×2 (18:07→19:58)
[2016-08-15] MEDS ORDERED: SODIUM CHLORIDE 0.9% 1000ML 1,000 ML IV STA (18:07)
--- NOTE | 2016-08-15 18:10 | EMERGENCY ROOM VISIT NOTE ---
History Report prepared by Juanita: Stef Gardner Under the Supervision of: Dr. Zachery Cuevas D.O. First contact with patient: 17:56 Chief Complaint: PAIN (GENERALIZED) Stated Complaint: MUSCLE PAIN, SORENESS, RASH FLARE UP History of Present Illness The patient is a 35 year old male who presents to the Emergency Room with complaints of worsening diffuse rash along with muscle aches. He notes that this has been present since last week. He was admitted and discharged this past and diagnosed with HSP. He notes that today the rash significantly worsened on his groin, lower extremity's and chest. He has diffuse myalgias and arthralgias. He has been unable to walk due to the pain. He is currently on 30 mg of steroids. He has no fevers. He did notice some dark tinged urine/red urine. Pt denies headache, change in vision, fevers, chest pain, shortness of breath, nausea, vomiting, diarrhea, pain with urination , and melena. 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 A total of 10 systems reviewed and were otherwise negative. Past Medical & Surgical Medical Problems: (1) Depression (2) Generalized maculopapular rash (3) Rash Family History Cancer Heart disease Hypertension Kidney disease Kidney stones Social History Smoking Status: Former Smoker Alcohol Use: occasionally Drug Use: none Marital Status: single Housing Status: lives with friends Occupation Status: employed Current/Historical Medications Scheduled Cetirizine Hcl (Zyrtec), 1 TAB PO DAILY Methylprednisolone (Medrol Dosepak), 1 PKT PO DAILY Allergies Coded Allergies: No Known Allergies (Unverified , 08/09/16) Physical Exam Vital Signs Date Time Temp Pulse Resp B/P Pulse Ox O2 Delivery O2 Flow Rate FiO2 08/15/16 20:30 86 20 146/101 96 Room Air 08/15/16 19:12 87 20 143/99 98 Room Air 08/15/16 16:16 36.9 130 20 132/89 98 Physical Exam GENERAL: Disheveled and sitting up in bed. Well nourished, mild distress, non- toxic EYE EXAM: normal conjunctiva. EARS: TMs clear bilaterally. OROPHARYNX: no exudate, no erythema, lips, buccal mucosa, and tongue normal and mucous membranes are moist NECK: supple, no nuchal rigidity, no adenopathy, non-tender LUNGS: Clear to auscultation. Normal chest wall mechanics HEART: no murmurs, S1 normal and S2 normal ABDOMEN: abdomen soft, non-tender, normo-active bowel sounds, no masses, no rebound or guarding. BACK: Back is symmetrical on inspection and there is no deformity, no midline tenderness, no CVA tenderness. SKIN: Diffuse petechia on hands, feet, and upper/lower extremities. UPPER EXTREMITIES: Pain within joints with range of motion, no swelling. LOWER EXTREMITIES: Diffuse pain in all joints with range of motion, most prominent in the knees. No swelling. NEURO EXAM: Normal sensorium, cranial nerves II-XII grossly intact, normal speech, no gross weakness of arms, no gross weakness of legs. Medical Decision & Procedures Laboratory Results 08/15/16 19:20 Red Blood Count 5.07, Mean Corpuscular Volume 87.6, Mean Corpuscular Hemoglobin 29.8, Mean Corpuscular Hemoglobin Concent 34.0, Mean Platelet Volume 8.8, Neutrophils (%) (Auto) 73.9, Lymphocytes (%) (Auto) 15.9, Monocytes (%) (Auto) 8.7, Eosinophils (%) (Auto) 1.0, Basophils (%) (Auto) 0.1, Neutrophils # (Auto) 8.89, Lymphocytes # (Auto) 1.91, Monocytes # (Auto) 1.04, Eosinophils # (Auto) 0.12, Basophils # (Auto) 0.01 08/15/16 19:20 Test 08/15/16 19:20 08/15/16 19:35 White Blood Count 12.02 K/uL (4.8-10.8) Red Blood Count 5.07 M/uL (4.7-6.1) Hemoglobin 15.1 g/dL (14.0-18.0) Hematocrit 44.4 % (42-52) Mean Corpuscular Volume 87.6 fL (80-100) Mean Corpuscular Hemoglobin 29.8 pg (25-34) Mean Corpuscular Hemoglobin Concent 34.0 g/dl (32-36) Platelet Count 430 K/uL (130-400) Mean Platelet Volume 8.8 fL (7.4-10.4) Neutrophils (%) (Auto) 73.9 % Lymphocytes (%) (Auto) 15.9 % Monocytes (%) (Auto) 8.7 % Eosinophils (%) (Auto) 1.0 % Basophils (%) (Auto) 0.1 % Neutrophils # (Auto) 8.89 K/uL (1.4-6.5) Lymphocytes # (Auto) 1.91 K/uL (1.2-3.4) Monocytes # (Auto) 1.04 K/uL (0.11-0.59) Eosinophils # (Auto) 0.12 K/uL (0-0.5) Basophils # (Auto) 0.01 K/uL (0-0.2) RDW Standard Deviation 43.5 fL (36.4-46.3) RDW Coefficient of Variation 13.6 % (11.5-14.5) Immature Granulocyte % (Auto) 0.4 % Immature Granulocyte # (Auto) 0.05 K/uL (0.00-0.02) Erythrocyte Sedimentation Rate 28 mm/hr (0-14) Anion Gap 10.0 mmol/L (3-11) Est Creatinine Clear Calc Drug Dose 128.1 ml/min Estimated GFR () 122.0 Estimated GFR (Non- 105.2 BUN/Creatinine Ratio 21.6 (10-20) Calcium Level 8.8 mg/dl (8.5-10.1) Total Bilirubin 0.5 mg/dl (0.2-1) Direct Bilirubin 0.1 mg/dl (0-0.2) Aspartate Amino Transf (AST/SGOT) 27 U/L (15-37) Alanine Aminotransferase (ALT/SGPT) 70 U/L (12-78) Alkaline Phosphatase 104 U/L (45-117) Total Creatine Kinase 406 U/L (39-308) C-Reactive Protein 6.78 mg/dl (0-0.29) Total Protein 7.2 gm/dl (6.4-8.2) Albumin 3.2 gm/dl (3.4-5.0) Lipase 94 U/L (73-393) Urine Color DK YELLOW Urine Appearance CLEAR (CLEAR) Urine pH 5.5 (4.5-7.5) Urine Specific [place] 1.041 (1.000-1.030) Urine Protein NEG (NEG) Urine Glucose (UA) NEG (NEG) Urine Ketones TRACE (NEG) Urine Occult Blood NEG (NEG) Urine Nitrite NEG (NEG) Urine Bilirubin NEG (NEG) Urine Urobilinogen NEG (NEG) Urine Leukocyte Esterase NEG (NEG) Urine WBC (Auto) 1-5 /hpf (0-5) Urine RBC (Auto) 0-4 /hpf (0-4) Urine Hyaline Casts (Auto) 5-10 /lpf (0-5) Urine Epithelial Cells (Auto) 20-30 /lpf (0-5) Urine Bacteria (Auto) NEG (NEG) Laboratory results per my review. Medications Administered Medications (Trade) Dose Ordered Sig/Gabbi Route Start Time Stop Time Status Last Admin Dose Admin Sodium Chloride (Nss 1000ml) 1,000 ml @ 999 mls/hr Q1H1M STAT IV 08/15/16 18:07 08/15/16 19:07 DC 08/15/16 19:23 999 MLS/HR Morphine Sulfate (MoRPHine SULFATE INJ) 2 mg STK-MED ONCE .ROUTE 08/15/16 19:10 08/15/16 19:12 DC 08/15/16 19:23 2 MG Morphine Sulfate (MoRPHine SULFATE INJ) 4 mg STK-MED ONCE .ROUTE 08/15/16 19:10 08/15/16 19:12 DC 08/15/16 19:23 4 MG Methylprednisolone Sodium Succinate (Solu-Medrol IV) 125 mg NOW STAT IV 08/15/16 19:58 08/15/16 19:59 DC 08/15/16 20:28 125 MG Morphine Sulfate (MoRPHine SULFATE INJ) 6 mg NOW STAT IV 08/15/16 19:58 08/15/16 19:59 DC 08/15/16 20:27 6 MG Hydromorphone HCl (Dilaudid Inj) 0.5 mg Q3HWA PRN IV 08/15/16 20:45 08/29/16 20:44 08/16/16 00:01 0.5 MG ED Course ED COURSE: Vital signs were reviewed and showed tachycardiac vitals The patients medical record was reviewed The above diagnostic studies were performed and reviewed. ED treatments and interventions as stated above. 1800: The patient was evaluated in room A2. A complete history and physical examination was performed. 7: Ordered Morphine Sulfate 6 mg IV, Sodium Chloride 1000 mL @ 999 mL/hr IV. 1909: Ordered Morphine Sulfate 4 mg IV, Morphine Sulfate 2 mg IV. 1945: I checked on the patient at this time. He is still having some pain. His first round of narcotics helped slightly. 1957: Ordered Morphine Sulfate 6 mg IV, Prednisolone 125 mg IV. 2003: I discussed the case with Dr. Ariadna Weber, he will evaluate the patient for further treatment at this time. 2005: Upon reevaluation, the patient is resting in bed.I discussed my findings with the patient and he understands and agrees with the treatment plan. Based on the patients age, coexisting illnesses, exam and lab findings the decision to treat as an inpatient was made. The patient remained stable while under my care. The patient will be evaluated for further management. Medical Decision Patient is a 35 year old male who presents the ER for if use myalgias, arthralgias and a petechial rash. Patient was seen here in early July and evaluated by internal medicine and rheumatology. At that time he was diagnosed with HSP and discharged on steroids. He returns today as he cannot walk because he has significant pain in his joints. Patient has been afebrile. Patient has no recent travel since his recent admission. No other complaints. Labs show no significant anemia or thrombocytopenia. ESR and CRP are slightly elevated which does support the vasculitis. CK is mildly elevated at 400. UA without hematuria. Patient was updated bedside. He was given 2 doses of IV narcotics with improvement of his pain. He is given IV fluids. Case discussed with internal medicine and will be admitted for further workup and pain control. Consults Time Called: 1999 Consulting Physician: Dr. Susanna Weber Returned Call: 2003 I discussed the case with Dr. Ariadna Weber, he will evaluate the patient for further treatment at this time. Impression Primary Impression: Arthralgia Additional Impressions: Myalgia HSP (Henoch Schonlein purpura) Scribe Attestation The scribe's documentation has been prepared under my direction and personally reviewed by me in its entirety. I confirm that the note above accurately reflects all work, treatment, procedures, and medical decision making performed by me. Departure Information Dispostion Being Evaluated By Hospitalist Referrals Juan Montero, Luanne.O. (PCP) Patient Instructions My [facility] Problem Qualifiers Primary Impression: Arthralgia Joint pain location: unspecified Qualified Codes: M25.50 - Pain in unspecified joint
[2016-08-15] MEDS ORDERED: MoRPHine SULFATE 4 MG/ML 1 ML CARP\\VIAL ONE (19:10)
[2016-08-15] MEDS ORDERED: MoRPHine SULFATE 2 MG/ML CARP ONE (19:10)
[2016-08-15 19:34] LABS: BASO % 0.1 %; BASO ABS # 0.01 K/uL (0-0.2); COMPLETE YES; HEMATOCRIT 44.4 % (42-52); IG% 0.4 %; LYMPH % 15.9 %; LYMPH ABS # 1.91 K/uL (1.2-3.4); MEAN CELL VOLUME 87.6 fL (80-100); MEAN CORPUSCULAR HEMOGLOBIN 29.8 pg (25-34); MEAN PLATELET VOLUME 8.8 fL (7.4-10.4); MONO % 8.7 %; NEUT % 73.9 %; PLATELET COUNT 430 K/uL (130-400); RED BLOOD COUNT 5.07 M/uL (4.7-6.1); WHITE BLOOD COUNT 12.02 K/uL (4.8-10.8)
[2016-08-15 19:51] LABS: BUN/CREATININE RATIO 21.6 (10-20); C-REACTIVE PROTEIN 6.78 mg/dl (0-0.29); CALCIUM 8.8 mg/dl (8.5-10.1); CREATININE 0.93 mg/dl (0.60-1.40); POTASSIUM 3.7 mmol/L (3.5-5.1)
[2016-08-15] MEDS ORDERED: METHYLPREDNISOLONE 125 MG VIAL IV STA (19:58)
[2016-08-15 20:00] LABS: URINE APPEARANCE CLEAR (CLEAR); URINE BILIRUBIN NEG (NEG); URINE COLOR DK YELLOW; URINE EPITHELIAL CELL AUTO 20-30 /lpf (0-5); URINE NITRITE NEG (NEG); URINE PH 5.5 (4.5-7.5); URINE SPECIFIC GRAVITY 1.041 (1.000-1.030); UROBILINOGEN NEG (NEG); ZZUR CULT IF INDIC CLEAN CATCH NO
[2016-08-15 20:07] LABS: MANUAL MICROSCOPIC REQUIRED? NO; REVIEW REQ? NO
[2016-08-15] MEDS ORDERED: VANCOMYCIN INJ 1,000 MG in SODIUM CHLORIDE 0.9% 250ML 250 ML IV SCH (20:45)
[2016-08-15] MEDS ORDERED: ONDANSETRON INJ 2 MG/ML 2 ML VIAL IV PRN (20:45)
[2016-08-15] MEDS ORDERED: PIPERACILL/TAZOBAC IV 3.375 GM in DEXTROSE 5% 100ML 100 ML IV SCH (20:45)
[2016-08-15] MEDS ORDERED: ALUMINUM/MAGNESIUM/SIMETH (MAALOX MAX) 30 ML UDC PO PRN (20:45)
[2016-08-15] MEDS ORDERED: MAGNESIUM HYDROXIDE SUSP 30 ML UDC PO PRN (20:45)
[2016-08-15] MEDS ORDERED: ACETAMINOPHEN 325 MG TAB PO PRN (20:45)
[2016-08-15] MEDS ORDERED: VANCOMYCIN INJ 1,700 MG in SODIUM CHLORIDE 0.9% 500ML 500 ML IV SCH (23:00)
[2016-08-15 23:11] VITALS: BP 149/98; PULSE 89; TEMP 36.9; O2SAT 100
[2016-08-15 23:30] VITALS: Ht 170.2 cm; Wt 107.0 kg
[2016-08-15] MEDS ORDERED: PIPERACILL/TAZOBAC CONSULT ACTIVE PRN (23:30)
[2016-08-15] MEDS ORDERED: VANCOMYCIN CONSULT ACTIVE PRN (23:30)
[2016-08-15] MEDS: SODIUM CHLORIDE 0.9% 1000ML 1,000 ML IV SCH (23:45)
[2016-08-16] MEDS ORDERED: PIPERACILL/TAZOBAC IV 4.5 GM in DEXTROSE 5% 100ML IV ONE ×2
[2016-08-16] MEDS: HYDROmorphone INJ 0.5 MG/0.5 ML SYR IV PRN ×2 (00:01→03:30)
--- NOTE | 2016-08-16 02:10 | HISTORY & PHYSICAL EXAMINATION ---
DATE OF ADMISSION: 08/15/2016 CHIEF COMPLAINT: Generalized rash. HISTORY OF PRESENT ILLNESS: This is a 35-year-old male with a past medical history significant for depression, who presents on August 09 of this year with predominant lower extremity rash going to his arms; at that time he was started on steroids, antibiotics and he was seen by rheumatology. 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 The patient says after he went home he was sick for some time; then he got better, the rash seemed to be improved, but then again the rash came back. At this time it was diffuse all over his lower extremities, trunk and upper extremities; very painful, he could not able to ambulate because of the pain, has muscle weakness and has low-grade fevers. He also noticed some blood when he blows up his nose. He denies any cough. He denies any chest pain. He gets short of breath while ambulating. Appetite is okay. He has noticed some orange colored urine. He denies any diarrhea. Currently is resting comfortably. There seems to be pain on movement. His hemodynamics are stable. ALLERGIES: No known drug allergies. PAST MEDICAL HISTORY: Depression and bipolar. PAST SURGICAL HISTORY: Not on report. FAMILY HISTORY: Significant for cancer, heart disease, hypertension, kidney disease and kidney stones. SOCIAL HISTORY: Former smoker, smoked two pack a day for 18 years, quit 6 years ago. Alcohol occasionally. Drugs, none. Single. 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 MEDICATIONS: Currently the patient is on doxycycline 100 mg p.o. b.i.d., cetirizine one tablet daily and Medrol Dosepak, he is to continue on the tapered dose. REVIEW OF SYMPTOMS: As per HPI. Rest of review of systems negative. PHYSICAL EXAMINATION: GENERAL: The patient is obese, not in distress. VITAL SIGNS: Temperature 36.9, pulse 86, respiratory rate 20, blood pressure 140/101 oxygen 96% on room air. HEENT: No pallor, no icterus. Pupils are equal, round and reactive to light. NECK: No JVD, no neck masses, no carotid bruits. CARDIOVASCULAR: S1, S2 heard, regular rate and rhythm, no murmur, no gallop. RESPIRATORY: Clear to auscultation bilaterally. No wheezing, no crackles. ABDOMEN: Soft, bowel sounds are present. Nontender. No distention. CENTRAL NERVOUS SYSTEM: Cranial nerves II-XII grossly intact. Nonfocal. EXTREMITIES: No edema. SKIN: Macular rash involving his lower extremities, trunk and his upper extremities, tender. LABORATORIES: WBC 12, hemoglobin 15.1, hematocrit 44.4, platelets 430. ESR 28. Sodium 138, potassium 3.7, chloride 101, CO2 27, BUN 20, creatinine 0.9, serum glucose 117, calcium 8.8, total bilirubin 0.5, direct bilirubin 0.1, AST 27, ALT 17, alkaline phosphatase 104, total creatinine kinase 406, lipase 94. Urinalysis positive for trace ketones, some hyaline casts. ASSESSMENT AND PLAN: This is a 35-year-old male, who recently presented with lower extremity rash, trunk and upper extremity rash and thought to be Henoch-Schonlein purpura and was discharged on doxycycline and Medrol Dosepak. He comes back with Diffuse maculopapular rash. Last admission He was seen by rheumatology and was discharged on Medrol Dosepak and doxycycline. He comes back with again flare of the rash . Maybe he needs high steroid dose for a long period of time. We will place him on IV Solu-Medrol 60 mg daily. Consult rheumatology. We will also consult dermatology and ID. We will place him on empiric antibiotics with IV vancomycin and Zosyn for now. Gentle fluids and monitor on the medical floor. Pain control. DVT prophylaxis SCDs and TEDs. DISPOSITION: Admit to medical floor. Expect to discharge to home and he will follow with his family doctor. Level 1. Full code. MTDD
[2016-08-16] MEDS ORDERED: VANCOMYCIN INJ 1,000 MG in SODIUM CHLORIDE 0.9% 250ML 250 ML IV SCH (02:30)
--- NOTE | 2016-08-16 04:42 | Pharmacy Progress Note ---
Pharmacy Antibiotic Consult Date of Service: Aug 16, 2016. Pharmacy Dosing Scope * Pharmacy is consulted to initiate Vancomycin IV dosing therapy, order appropriate labs and adjust drug dose/frequency. Subjective * The patient is a 35 year old male admitted on Aug 15, 2016 at 20:45. Objective Height (Feet): 5 Height (Inches): 7.00 Weight (Kilograms): 107.000 Lab Results (24hrs): Laboratory Tests Test 08/15/16 19:20 BUN/Creatinine Ratio 21.6 Blood Urea Nitrogen 20 mg/dl Creatinine 0.93 mg/dl White Blood Count 12.02 K/uL Red Blood Count 5.07 M/uL Hemoglobin 15.1 g/dL Hematocrit 44.4 % Mean Corpuscular Volume 87.6 fL Mean Corpuscular Hemoglobin 29.8 pg Mean Corpuscular Hemoglobin Concent 34.0 g/dl Platelet Count 430 K/uL Mean Platelet Volume 8.8 fL Neutrophils (%) (Auto) 73.9 % Lymphocytes (%) (Auto) 15.9 % Monocytes (%) (Auto) 8.7 % Eosinophils (%) (Auto) 1.0 % Basophils (%) (Auto) 0.1 % Neutrophils # (Auto) 8.89 K/uL Lymphocytes # (Auto) 1.91 K/uL Monocytes # (Auto) 1.04 K/uL Eosinophils # (Auto) 0.12 K/uL Basophils # (Auto) 0.01 K/uL Recent Pertinent Medications * Patient is also receiving Zosyn 4.5gm IV every 8 hours Assessment & Plan A total loading dose of 2700 mg (~25mg/kg) was given and will follow with 1300mg (~12mg/kg) IV every 8 hours. Goal trough level estimate: between 15-20 Trough level is ordered for 0130 on 08/17/16. Pharmacy will continue to follow and will adjust dose/frequency as necessary. Thank you
[2016-08-16] MEDS ORDERED: PIPERACILL/TAZOBAC IV 4.5 GM in DEXTROSE 5% 100ML IV SCH (06:00)
[2016-08-16 06:32] LABS: COMPLETE YES; EOS % 0.1 %; HEMATOCRIT 37.2 % (42-52); IG% 0.6 %; LYMPH % 17.9 %; LYMPH ABS # 1.45 K/uL (1.2-3.4); MEAN CELL VOLUME 86.1 fL (80-100); MEAN CORPUSCULAR HEMOGLOBIN 29.4 pg (25-34); MEAN CORPUSCULAR HGB CONC 34.1 g/dl (32-36); MEAN PLATELET VOLUME 8.6 fL (7.4-10.4); MONO % 4.3 %; NEUT % 77.1 %; PLATELET COUNT 368 K/uL (130-400); RED BLOOD COUNT 4.32 M/uL (4.7-6.1); WHITE BLOOD COUNT 8.08 K/uL (4.8-10.8)
[2016-08-16 07:05] VITALS: BP 119/77; PULSE 61; TEMP 36.6; O2SAT 96
[2016-08-16 07:07] LABS: BUN/CREATININE RATIO 20.3 (10-20); CALCIUM 7.9 mg/dl (8.5-10.1); CREATININE 0.62 mg/dl (0.60-1.40); MAGNESIUM 2.1 mg/dl (1.8-2.4); POTASSIUM 4.2 mmol/L (3.5-5.1)
[2016-08-16 08:00] VITALS: O2SAT 96
[2016-08-16] MEDS: CETIRIZINE HCL 10 MG TAB PO SCH (08:32)
[2016-08-16] MEDS: METHYLPREDNISOLONE IV 60 MG in SYRINGE 0 ML IV SCH (08:32)
--- NOTE | 2016-08-16 09:47 | Rheumatology Consultation ---
Rheumatology Consultation Date of Consultation: Aug 16, 2016. Requesting Physician: Dr Mullins Attending Physician: Dr Amato Reason for Consultation: HSP/IgA vasculitis History of Present Illness Mr Adams is a 35 y/o male who preseted to [facility] ED yesterday with increasing pains and rash assoicated with his recent diagnosis of IgA (formerly HSP) vasculitis. His autoimmune work up has been negative in the past. He was seen at last admission by Dr Scott with classic HSP rash and was discharged home on medrol dose pack. His HSP started shortly after a viral illness several weeks ago and has been seen at [facility] 3 times now with 2 admissions. He reports that after discharge he did not take medrol for 1 day because of feeling sick - had GI upset, nausea. [place] maybe related to the abx he was on. He was seen sunday by Dr David and the rash and pain was doing better. He started the medrol on sunday. He mentions that later sunday and yesterday he noted that the rash was worsening again - especially on the legs, groin, arms with increasing MSK pains. he is having more myalgias then arthralgias. he was at work at [employer] and his friend made him come to the ED to be seen. He reports that he could not walk because of the pain in his legs. He wa also having abd pain as well. No diarrhea, no hematuria. He also felt like he was a little feverish. He did not have a fever in the ED. He reports that he noted some rash on the soles of his feet and palms of his hands which is new for him as well. He states he could deal with the rash but it was the pain that got him to be seen at the ED. He cannot walk because of the pain. He was admitted and started on IV abx, IV steroids and given pain pills. He was given 125 mg of IV solumedrol yesterday. He reports that his pain is better today but maybe related to the pain pills. he rates his pain at 7. his pain is most severe in the thighs around the knees, ankles. He also has abd pain but no diarrhea. He denies any oral lesions, conjunctivitis, CP, SOB. Labs show elevated inflammatory markers, normal kidney and liver functions and no RBC's in urine. He does already have follow up scheduled with Dr Scott in early august. Past Medical/Surgical History Medical History: depression, other (HSP/IgA vasculitis) Surgical History: no surgical history Family History no family history of autoimmune diseases Social History Smoking Status: Former Smoker History of Alcohol Use: Yes (Rarely) Drug Use: none Marital Status: single Occupation Status: employed Review of Systems Constitutional: + chills, + fever, + weakness Eyes: + see HPI Respiratory: No shortness of breath Cardiac: No chest pain Abdomen: + nausea, + pain, + see HPI Musculoskeletal: + see HPI Male : + see HPI, No hematuria Skin: + rash All Other Systems: Reviewed and Negative Allergies Coded Allergies: No Known Allergies (Unverified , 08/09/16) Medications Current Inpatient Medications Medications (Trade) Dose Ordered Sig/Gabbi Route Start Time Stop Time Status Last Admin Dose Admin Acetaminophen (Tylenol Tab) 650 mg Q4H PRN PO 08/15/16 20:45 09/14/16 20:44 Al Hydrox/Mg Hydrox/Simethicone (Maalox Max Susp) 15 ml Q4H PRN PO 08/15/16 20:45 09/14/16 20:44 Magnesium Hydroxide (Milk Of Magnesia Susp) 30 ml Q6H PRN PO 08/15/16 20:45 09/14/16 20:44 Ondansetron HCl (Zofran Inj) 4 mg Q6H PRN IV 08/15/16 20:45 09/14/16 20:44 Cetirizine HCl 10 mg 10 mg DAILY PO 08/16/16 09:00 09/15/16 08:59 Methylprednisolone Sodium Succinate/ Syringe (Solu-Medrol IV/ Syringe) 0.96 ml @ 1.5 mls/min DAILY IV 08/16/16 09:00 09/15/16 08:59 Hydromorphone HCl 0.5 mg 0.5 mg Q3HWA PRN IV 08/15/16 20:45 08/29/16 20:44 08/16/16 03:30 0.5 MG Sodium Chloride (Nss 1000ml) 1,000 ml @ 80 mls/hr [id number] IV 08/15/16 23:15 09/14/16 23:14 08/15/16 23:45 80 MLS/HR Piperacillin Sod/ Tazobactam Sod (Consult) 1 ea UD PRN N/A 08/15/16 23:30 09/14/16 23:29 Vancomycin HCl 1 ea 1 ea UD PRN N/A 08/15/16 23:30 09/14/16 23:29 Piperacillin Sod/ Tazobactam Sod 4.5 gm/Dextrose 120 ml @ 30 mls/hr Q8H IV 08/16/16 06:00 08/26/16 05:59 08/16/16 05:45 30 MLS/HR Vancomycin HCl/ Sodium Chloride (Vancomycin Inj/ Nss 250ml) 276 ml @ 125 mls/hr Q8H IV 08/16/16 10:00 08/26/16 09:59 Physical Exam Date Time Temp Pulse Resp B/P Pulse Ox O2 Delivery O2 Flow Rate FiO2 08/16/16 07:05 36.6 61 16 119/77 96 08/15/16 23:30 Room Air 08/15/16 23:30 Room Air 08/15/16 23:11 36.9 89 20 149/98 100 Room Air 08/15/16 22:46 78 18 127/84 95 Room Air 08/15/16 21:54 37.3 84 22 122/89 94 08/15/16 20:30 86 20 146/101 96 Room Air 08/15/16 19:12 87 20 143/99 98 Room Air 08/15/16 16:16 36.9 130 20 132/89 98 General Appearance: WD/WN, + moderate distress (from pain) Eyes: bilateral eyes EOMI, bilateral eyes normal inspection ENT: normal ENT inspection, hearing grossly normal, pharynx normal Respiratory: chest non-tender, lungs clear, normal breath sounds, no respiratory distress Cardiovascular: regular rate, rhythm, no edema, no gallop, no murmur Abdomen: normal bowel sounds, soft, + tenderness (diffuse) Musculoskeletal: no synovitis noted on exam has lot of discomfort with movement of his lower legs - the pain is most severe in the thighs some discomfort to squeeze of large muscle groups of legs and forearms Neurologic/Psychiatric: alert, normal mood/affect, oriented x 3 Skin: + rash (diffuse puropuritic rash with some palpable purpura and areas of ulcers on lower legs) Laboratory Results Last 24 Hours Test 08/15/16 19:20 08/15/16 19:35 08/16/16 05:48 White Blood Count 12.02 K/uL 8.08 K/uL Red Blood Count 5.07 M/uL 4.32 M/uL Hemoglobin 15.1 g/dL 12.7 g/dL Hematocrit 44.4 % 37.2 % Mean Corpuscular Volume 87.6 fL 86.1 fL Mean Corpuscular Hemoglobin 29.8 pg 29.4 pg Mean Corpuscular Hemoglobin Concent 34.0 g/dl 34.1 g/dl Platelet Count 430 K/uL 368 K/uL Mean Platelet Volume 8.8 fL 8.6 fL Neutrophils (%) (Auto) 73.9 % 77.1 % Lymphocytes (%) (Auto) 15.9 % 17.9 % Monocytes (%) (Auto) 8.7 % 4.3 % Eosinophils (%) (Auto) 1.0 % 0.1 % Basophils (%) (Auto) 0.1 % 0.0 % Neutrophils # (Auto) 8.89 K/uL 6.22 K/uL Lymphocytes # (Auto) 1.91 K/uL 1.45 K/uL Monocytes # (Auto) 1.04 K/uL 0.35 K/uL Eosinophils # (Auto) 0.12 K/uL 0.01 K/uL Basophils # (Auto) 0.01 K/uL 0.00 K/uL RDW Standard Deviation 43.5 fL 42.7 fL RDW Coefficient of Variation 13.6 % 13.6 % Immature Granulocyte % (Auto) 0.4 % 0.6 % Immature Granulocyte # (Auto) 0.05 K/uL 0.05 K/uL Erythrocyte Sedimentation Rate 28 mm/hr Sodium Level 138 mmol/L 138 mmol/L Potassium Level 3.7 mmol/L 4.2 mmol/L Chloride Level 101 mmol/L 104 mmol/L Carbon Dioxide Level 27 mmol/L 28 mmol/L Anion Gap 10.0 mmol/L 6.0 mmol/L Blood Urea Nitrogen 20 mg/dl 13 mg/dl Creatinine 0.93 mg/dl 0.62 mg/dl Est Creatinine Clear Calc Drug Dose 128.1 ml/min 192.1 ml/min Estimated GFR () 122.0 147.9 Estimated GFR (Non- 105.2 127.6 BUN/Creatinine Ratio 21.6 20.3 Random Glucose 117 mg/dl 116 mg/dl Calcium Level 8.8 mg/dl 7.9 mg/dl Total Bilirubin 0.5 mg/dl Direct Bilirubin 0.1 mg/dl Aspartate Amino Transf (AST/SGOT) 27 U/L Alanine Aminotransferase (ALT/SGPT) 70 U/L Alkaline Phosphatase 104 U/L Total Creatine Kinase 406 U/L C-Reactive Protein 6.78 mg/dl Total Protein 7.2 gm/dl Albumin 3.2 gm/dl Lipase 94 U/L Urine Color DK YELLOW Urine Appearance CLEAR Urine pH 5.5 Urine Specific [place] 1.041 Urine Protein NEG Urine Glucose (UA) NEG Urine Ketones TRACE Urine Occult Blood NEG Urine Nitrite NEG Urine Bilirubin NEG Urine Urobilinogen NEG Urine Leukocyte Esterase NEG Urine WBC (Auto) 1-5 /hpf Urine RBC (Auto) 0-4 /hpf Urine Hyaline Casts (Auto) 5-10 /lpf Urine Epithelial Cells (Auto) 20-30 /lpf Urine Bacteria (Auto) NEG Magnesium Level 2.1 mg/dl Assessment & Plan Assessment & Plan: assessment: Richard is a 35 y/o male with IgA vasculitis (HSP) that was readmitted with flare of his vasculitis with tapering of medrol. I explained that flares can happen - both skin and myalgias/arthralgias over the upcoming weeks and likely needs higher dose of steroids for longer period of time at this point. Explained that IgA vasculitis can take several months before it fully goes away. No concerns for GI or involvement at this point. No concern for an underlying autoimmune process at this point. I doubt any infectious process at this point and I think IV abx can be stopped - would be concerned about causing secondary infection such as Cdiff. he is having a significant amount of pain and almost seems out of proportion of the exam. will need pain control as well. I did contact Dr Amato and discussed Mr Adams's case. Plan: 1. would give IV dose of solumedrol today 60mg 2. starting tomorrow start prednisone 40mg daily for 1 week, 30mg daily for 1 week, 20mg daily for 1week, 10mg daily for 1 week, 5mg daily for 1 week then stop 3. I suggest stopping IV abx at this point 4. pain control as per primary service and may need to be discharged home with some narcotics for pain control 5. Already has follow up with Dr Scott in Rheumatology scheduled in early March 6. Thank you for the consult and involving me in this patient's care.
[2016-08-16] MEDS ORDERED: VANCOMYCIN INJ 1,300 MG in SODIUM CHLORIDE 0.9% 250ML 250 ML IV SCH (10:00)
[2016-08-16] MEDS ORDERED: HYDROCODONE/ACETAMOPHEN 5/325MG TAB PO PRN (11:00)
[2016-08-16] MEDS: SODIUM CHLORIDE 0.9% 1000ML 1,000 ML IV SCH (12:23)
--- NOTE | 2016-08-16 12:49 | Progress Note ---
Subjective Date of Service: Aug 16, 2016. Subjective Pt evaluation today including: conversation w/ patient, physical exam, lab review, review of studies, review of inpatient medication list Saw/examined the patient in room 260 States he was doing well after discharge from hospital last week, but returned as his rash and pain recurred Currently he is tired, pain persists though improving with medications Problem List Medical Problems: (1) Arthralgia Status: Acute (2) HSP (Henoch Schonlein purpura) Status: Acute (3) Myalgia Status: Acute Review of Systems Constitutional: + chills, No fever Respiratory: No cough, No dyspnea at rest, No dyspnea on exertion, No hemoptysis, No shortness of breath, No sputum, No wheezing Cardiac: No chest pain, No edema, No palpitations Abdomen: No diarrhea, No nausea, No pain, No vomiting Musculoskeletal: + joint pain, + muscle pain (lower extremity) Male : No dysuria, No hematuria, No urinary frequency Medications Current Inpatient Medications Medications (Trade) Dose Ordered Sig/Gabbi Route Start Time Stop Time Status Last Admin Dose Admin Acetaminophen (Tylenol Tab) 650 mg Q4H PRN PO 08/15/16 20:45 09/14/16 20:44 Al Hydrox/Mg Hydrox/Simethicone (Maalox Max Susp) 15 ml Q4H PRN PO 08/15/16 20:45 09/14/16 20:44 Magnesium Hydroxide (Milk Of Magnesia Susp) 30 ml Q6H PRN PO 08/15/16 20:45 09/14/16 20:44 Ondansetron HCl (Zofran Inj) 4 mg Q6H PRN IV 08/15/16 20:45 09/14/16 20:44 Cetirizine HCl 10 mg 10 mg DAILY PO 08/16/16 09:00 09/15/16 08:59 08/16/16 08:32 10 MG Methylprednisolone Sodium Succinate 60 mg/Syringe 0.96 ml @ 1.5 mls/min DAILY IV 08/16/16 09:00 09/15/16 08:59 08/16/16 08:32 1.5 MLS/MIN Sodium Chloride (Nss 1000ml) 1,000 ml @ 80 mls/hr [id number] IV 08/15/16 23:15 09/14/16 23:14 08/16/16 12:23 80 MLS/HR Acetaminophen/ Hydrocodone Bitart ([place] 5/325 Tab) 1 tab Q6 PRN PO 08/16/16 11:00 08/30/16 10:59 08/16/16 12:22 1 TAB Objective Vital Signs Date Time Temp Pulse Resp B/P Pulse Ox O2 Delivery O2 Flow Rate FiO2 08/16/16 08:00 96 Room Air 08/16/16 07:05 36.6 61 16 119/77 96 08/15/16 23:30 Room Air 08/15/16 23:30 Room Air 08/15/16 23:11 36.9 89 20 149/98 100 Room Air 08/15/16 22:46 78 18 127/84 95 Room Air 08/15/16 21:54 37.3 84 22 122/89 94 08/15/16 20:30 86 20 146/101 96 Room Air 08/15/16 19:12 87 20 143/99 98 Room Air 08/15/16 16:16 36.9 130 20 132/89 98 Physical Exam General Appearance: + mild distress (secondary to pain) Respiratory/Chest: lungs clear, normal breath sounds, no respiratory distress, no accessory muscle use Cardiovascular: regular rate, rhythm, no edema, no murmur Abdomen: normal bowel sounds, non tender, soft Extremities: no pedal edema Neurologic/Psychiatric: no motor/sensory deficits, alert, normal mood/affect Skin: + pertinent finding (palpable purpura, some ulcerated wounds) Lymphatic: no adenopathy Laboratory Results Last 24 Hours Test 08/15/16 19:20 08/15/16 19:35 08/16/16 05:48 White Blood Count 12.02 K/uL 8.08 K/uL Red Blood Count 5.07 M/uL 4.32 M/uL Hemoglobin 15.1 g/dL 12.7 g/dL Hematocrit 44.4 % 37.2 % Mean Corpuscular Volume 87.6 fL 86.1 fL Mean Corpuscular Hemoglobin 29.8 pg 29.4 pg Mean Corpuscular Hemoglobin Concent 34.0 g/dl 34.1 g/dl Platelet Count 430 K/uL 368 K/uL Mean Platelet Volume 8.8 fL 8.6 fL Neutrophils (%) (Auto) 73.9 % 77.1 % Lymphocytes (%) (Auto) 15.9 % 17.9 % Monocytes (%) (Auto) 8.7 % 4.3 % Eosinophils (%) (Auto) 1.0 % 0.1 % Basophils (%) (Auto) 0.1 % 0.0 % Neutrophils # (Auto) 8.89 K/uL 6.22 K/uL Lymphocytes # (Auto) 1.91 K/uL 1.45 K/uL Monocytes # (Auto) 1.04 K/uL 0.35 K/uL Eosinophils # (Auto) 0.12 K/uL 0.01 K/uL Basophils # (Auto) 0.01 K/uL 0.00 K/uL RDW Standard Deviation 43.5 fL 42.7 fL RDW Coefficient of Variation 13.6 % 13.6 % Immature Granulocyte % (Auto) 0.4 % 0.6 % Immature Granulocyte # (Auto) 0.05 K/uL 0.05 K/uL Erythrocyte Sedimentation Rate 28 mm/hr Sodium Level 138 mmol/L 138 mmol/L Potassium Level 3.7 mmol/L 4.2 mmol/L Chloride Level 101 mmol/L 104 mmol/L Carbon Dioxide Level 27 mmol/L 28 mmol/L Anion Gap 10.0 mmol/L 6.0 mmol/L Blood Urea Nitrogen 20 mg/dl 13 mg/dl Creatinine 0.93 mg/dl 0.62 mg/dl Est Creatinine Clear Calc Drug Dose 128.1 ml/min 192.1 ml/min Estimated GFR () 122.0 147.9 Estimated GFR (Non- 105.2 127.6 BUN/Creatinine Ratio 21.6 20.3 Random Glucose 117 mg/dl 116 mg/dl Calcium Level 8.8 mg/dl 7.9 mg/dl Total Bilirubin 0.5 mg/dl Direct Bilirubin 0.1 mg/dl Aspartate Amino Transf (AST/SGOT) 27 U/L Alanine Aminotransferase (ALT/SGPT) 70 U/L Alkaline Phosphatase 104 U/L Total Creatine Kinase 406 U/L C-Reactive Protein 6.78 mg/dl Total Protein 7.2 gm/dl Albumin 3.2 gm/dl Lipase 94 U/L Urine Color DK YELLOW Urine Appearance CLEAR Urine pH 5.5 Urine Specific [place] 1.041 Urine Protein NEG Urine Glucose (UA) NEG Urine Ketones TRACE Urine Occult Blood NEG Urine Nitrite NEG Urine Bilirubin NEG Urine Urobilinogen NEG Urine Leukocyte Esterase NEG Urine WBC (Auto) 1-5 /hpf Urine RBC (Auto) 0-4 /hpf Urine Hyaline Casts (Auto) 5-10 /lpf Urine Epithelial Cells (Auto) 20-30 /lpf Urine Bacteria (Auto) NEG Magnesium Level 2.1 mg/dl Assessment and Plan This is a 35 year old male who presents with rash and multiple joint pains Henoch Schnlein Purpura patient presented last week with the same episode was sent home with medrol dosepak states he was doing better with it, but then the rash and pain recurred, so he came back to the hospital given solu-medrol 125mg x 1 in the ER appreciate rheumatology input will do IV solu-medrol 60mg x 1 Prednisone taper starting in AM (08/17) stopped IV Dilaudid - started Percocet - october discharge with a few day supply of Percocet if pain persists FULL CODE Discharge planning: home
--- NOTE | 2016-08-16 13:51 | Medical Consult ---
Consultation Date of Consultation: Aug 16, 2016. Attending Physician: Mae Amato DO History of Present Illness 35 y/o M with rash on the legs and spread up to the abdomen, buttocks and arms over the past few weeks. Pt states prior to rash developing he had flu like symptoms with fevers, malaise and URI symptoms. 2 days later developed rash. Also with muscle/joint aches in the arms and legs and mild abdominal pain. Currently denies any fevers or chills. Pt was recently hospitalized and diagnosed with HSP and treated with IV solumedrol and discharged on medrol dose pack. From outpatient records it does not appear that pt started taking the medrol dose pack right after discharge. Labs from outpatient show trace blood and protein on urinalysis and elevated ESR. Otherwise labs are unremarkable. He denies seeing any blood in urine or stools. Past Medical/Surgical History Medical Problems: (1) Arthralgia Status: Acute (2) HSP (Henoch Schonlein purpura) Status: Acute (3) Myalgia Status: Acute Family History Cancer Heart disease Hypertension Kidney disease Kidney stones Social History Smoking Status: Former Smoker Drug Use: none Marital Status: single Housing Status: lives with friends Occupation Status: employed Allergies Coded Allergies: No Known Allergies (Unverified , 08/09/16) Current Inpatient Medications Current Inpatient Medications Medications (Trade) Dose Ordered Sig/Gabbi Route Start Time Stop Time Status Last Admin Dose Admin Acetaminophen (Tylenol Tab) 650 mg Q4H PRN PO 08/15/16 20:45 09/14/16 20:44 Al Hydrox/Mg Hydrox/Simethicone (Maalox Max Susp) 15 ml Q4H PRN PO 08/15/16 20:45 09/14/16 20:44 Magnesium Hydroxide (Milk Of Magnesia Susp) 30 ml Q6H PRN PO 08/15/16 20:45 09/14/16 20:44 Ondansetron HCl (Zofran Inj) 4 mg Q6H PRN IV 08/15/16 20:45 09/14/16 20:44 Cetirizine HCl 10 mg 10 mg DAILY PO 08/16/16 09:00 09/15/16 08:59 08/16/16 08:32 10 MG Methylprednisolone Sodium Succinate 60 mg/Syringe 0.96 ml @ 1.5 mls/min DAILY IV 08/16/16 09:00 09/15/16 08:59 08/16/16 08:32 1.5 MLS/MIN Sodium Chloride (Nss 1000ml) 1,000 ml @ 80 mls/hr [id number] IV 08/15/16 23:15 09/14/16 23:14 08/16/16 12:23 80 MLS/HR Acetaminophen/ Hydrocodone Bitart ([place] 5/325 Tab) 1 tab Q6 PRN PO 08/16/16 11:00 08/30/16 10:59 08/16/16 12:22 1 TAB Review of Systems Musculoskeletal: + joint pain, + muscle pain Physical Exam Date Time Temp Pulse Resp B/P Pulse Ox O2 Delivery O2 Flow Rate FiO2 08/16/16 08:00 96 Room Air 08/16/16 07:05 36.6 61 16 119/77 96 08/15/16 23:30 Room Air 08/15/16 23:30 Room Air 08/15/16 23:11 36.9 89 20 149/98 100 Room Air 08/15/16 22:46 78 18 127/84 95 Room Air 08/15/16 21:54 37.3 84 22 122/89 94 08/15/16 20:30 86 20 146/101 96 Room Air 08/15/16 19:12 87 20 143/99 98 Room Air 08/15/16 16:16 36.9 130 20 132/89 98 Gen: alert and oriented x 3, no acute distress Skin: examination of the face, neck, chest, abdomen, bilateral upper extremities and bilateral lower extremities: palpable purpura scattered on the bilateral legs, feet and extending up to the abdomen, flanks, groin, buttocks and on the ventral surface of the forearms. Laboratory Results Last 24 Hours Test 08/15/16 19:20 08/15/16 19:35 08/16/16 05:48 White Blood Count 12.02 K/uL 8.08 K/uL Red Blood Count 5.07 M/uL 4.32 M/uL Hemoglobin 15.1 g/dL 12.7 g/dL Hematocrit 44.4 % 37.2 % Mean Corpuscular Volume 87.6 fL 86.1 fL Mean Corpuscular Hemoglobin 29.8 pg 29.4 pg Mean Corpuscular Hemoglobin Concent 34.0 g/dl 34.1 g/dl Platelet Count 430 K/uL 368 K/uL Mean Platelet Volume 8.8 fL 8.6 fL Neutrophils (%) (Auto) 73.9 % 77.1 % Lymphocytes (%) (Auto) 15.9 % 17.9 % Monocytes (%) (Auto) 8.7 % 4.3 % Eosinophils (%) (Auto) 1.0 % 0.1 % Basophils (%) (Auto) 0.1 % 0.0 % Neutrophils # (Auto) 8.89 K/uL 6.22 K/uL Lymphocytes # (Auto) 1.91 K/uL 1.45 K/uL Monocytes # (Auto) 1.04 K/uL 0.35 K/uL Eosinophils # (Auto) 0.12 K/uL 0.01 K/uL Basophils # (Auto) 0.01 K/uL 0.00 K/uL RDW Standard Deviation 43.5 fL 42.7 fL RDW Coefficient of Variation 13.6 % 13.6 % Immature Granulocyte % (Auto) 0.4 % 0.6 % Immature Granulocyte # (Auto) 0.05 K/uL 0.05 K/uL Erythrocyte Sedimentation Rate 28 mm/hr Sodium Level 138 mmol/L 138 mmol/L Potassium Level 3.7 mmol/L 4.2 mmol/L Chloride Level 101 mmol/L 104 mmol/L Carbon Dioxide Level 27 mmol/L 28 mmol/L Anion Gap 10.0 mmol/L 6.0 mmol/L Blood Urea Nitrogen 20 mg/dl 13 mg/dl Creatinine 0.93 mg/dl 0.62 mg/dl Est Creatinine Clear Calc Drug Dose 128.1 ml/min 192.1 ml/min Estimated GFR () 122.0 147.9 Estimated GFR (Non- 105.2 127.6 BUN/Creatinine Ratio 21.6 20.3 Random Glucose 117 mg/dl 116 mg/dl Calcium Level 8.8 mg/dl 7.9 mg/dl Total Bilirubin 0.5 mg/dl Direct Bilirubin 0.1 mg/dl Aspartate Amino Transf (AST/SGOT) 27 U/L Alanine Aminotransferase (ALT/SGPT) 70 U/L Alkaline Phosphatase 104 U/L Total Creatine Kinase 406 U/L C-Reactive Protein 6.78 mg/dl Total Protein 7.2 gm/dl Albumin 3.2 gm/dl Lipase 94 U/L Urine Color DK YELLOW Urine Appearance CLEAR Urine pH 5.5 Urine Specific [place] 1.041 Urine Protein NEG Urine Glucose (UA) NEG Urine Ketones TRACE Urine Occult Blood NEG Urine Nitrite NEG Urine Bilirubin NEG Urine Urobilinogen NEG Urine Leukocyte Esterase NEG Urine WBC (Auto) 1-5 /hpf Urine RBC (Auto) 0-4 /hpf Urine Hyaline Casts (Auto) 5-10 /lpf Urine Epithelial Cells (Auto) 20-30 /lpf Urine Bacteria (Auto) NEG Magnesium Level 2.1 mg/dl Assessment & Plan 35 y/o M with HSP 1. recommend slow steady taper of prednisone on discharge. Prednisone 60mg x 5 days, 40mg x 5 days, then 20mg x 5 days. 2. If flares off prednisone would consider starting colchicine since sometimes HSP can take months to resolve 3. I will follow-up with patient in clinic within 1-2 weeks of discharge. 4. Pt will need urinalysis to monitor renal function regularly for the next 6 months, could consider nephrology consult. 5. There is no need for any antibiotic therapy from my standpoint. Please call my office with any further questions or concern at [phone].
[2016-08-16 15:07] VITALS: BP 110/69; PULSE 68; TEMP 37.5; O2SAT 98
[2016-08-16 23:37] VITALS: BP 145/91; PULSE 62; TEMP 36.8; O2SAT 98
[2016-08-17 00:01] VITALS: O2SAT 98
[2016-08-17] MEDS: SODIUM CHLORIDE 0.9% 1000ML 1,000 ML IV SCH ×2 (00:31→12:43)
[2016-08-17] MEDS ORDERED: VANCOMYCIN TROUGH SCH (01:30)
[2016-08-17 04:59] VITALS: BP 150/96; PULSE 114; TEMP 36.5; O2SAT 91
[2016-08-17] MEDS ORDERED: MoRPHine SULFATE 4 MG/ML 1 ML CARP\\VIAL IV ONE (05:27)
--- NOTE | 2016-08-17 05:29 | Progress Note ---
Progress Note Date of Service Aug 17, 2016. Progress Note 430: Called by nurse regarding vomiting and diarrhea. Pt also complaining of new onset abdominal pain that is sharp and periumbilical but generalized on exam. Nurse reports no gross blood in vomitus or diarrhea. VS reveal HR 114, RR 20, BP 150/96 91% on PA and patient is afebrile. On exam he is lying on his side with a shirt over his head to block the light and appears in mild distress. Lungs are clear to auscultation, heart sounds are normal, abdomen is obese but not distended. It is soft with hypoactive bowel sounds present and some voluntary guarding in all quadrants. No CVA tenderness. Skin with diffuse purpuric macular rash that is generalized. He had this last week, also. In setting of HSP would be concerned for purpura on GI mucous membranes with occult blood irritating GI tract versus intussuseption. Will start with AXR and then consider abdominal ultrasound to rule out intusseption. He is already receiving IVF and Zofran PRN. Will cont supportive care and await imaging. Stool studies also ordered. Morphine for pain Madelin Rizvi DO Hospitalist
[2016-08-17] MEDS ORDERED: SODIUM CHLORIDE 0.9% 500ML 500 ML IV SCH (05:30)
--- NOTE | 2016-08-17 06:32 | DIAGNOSTIC IMAGING REPORT ---
ABDOMEN 2VIEW W/PA CHEST RTN CLINICAL HISTORY: vomiting and diarrhea in case of HSP COMPARISON STUDY: No previous studies for comparison. FINDINGS: The soft tissues, psoas shadows, renal outlines and intestinal gas pattern appear normal. There is no evidence for bowel obstruction. There is no evidence for free intraperitoneal air. No abnormal abdominal calcifications are seen. A frontal view of the chest was performed and is unremarkable. IMPRESSION: Normal study. Electronically signed by: Deondre Rodriguez M.D. 08/17/2016 6:31 AM Dictated Date/Time: 08/17/2016 6:31 AM
[2016-08-17 07:04] VITALS: BP 129/84; PULSE 64; TEMP 36.6; O2SAT 97
[2016-08-17 08:12] LABS: BASO % 0.1 %; BASO ABS # 0.01 K/uL (0-0.2); COMPLETE YES; EOS % 0.1 %; HEMATOCRIT 45.4 % (42-52); IG% 0.8 %; LYMPH % 8.7 %; LYMPH ABS # 1.41 K/uL (1.2-3.4); MEAN CELL VOLUME 87.3 fL (80-100); MEAN CORPUSCULAR HGB CONC 34.4 g/dl (32-36); MEAN PLATELET VOLUME 8.7 fL (7.4-10.4); MONO % 16.1 %; NEUT % 74.2 %; PLATELET COUNT 472 K/uL (130-400); WHITE BLOOD COUNT 16.23 K/uL (4.8-10.8)
[2016-08-17 08:28] LABS: BUN/CREATININE RATIO 24.5 (10-20); CALCIUM 8.1 mg/dl (8.5-10.1); CREATININE 0.73 mg/dl (0.60-1.40); MAGNESIUM 2.1 mg/dl (1.8-2.4); POTASSIUM 3.3 mmol/L (3.5-5.1)
[2016-08-17] MEDS: METHYLPREDNISOLONE IV 60 MG in SYRINGE 0 ML IV SCH (08:29)
[2016-08-17] MEDS: CETIRIZINE HCL 10 MG TAB PO SCH (12:43)
--- NOTE | 2016-08-17 13:08 | Progress Note ---
Subjective Date of Service: Aug 17, 2016. Subjective Pt evaluation today including: conversation w/ patient, physical exam, lab review, review of studies, review of inpatient medication list Saw/examined the patient in room 260 Had a bad night - developed abdominal pain, diarrhea, feels very weak pain at the site of the rash at the lower extremities Problem List Medical Problems: (1) Arthralgia Status: Acute (2) HSP (Henoch Schonlein purpura) Status: Acute (3) Myalgia Status: Acute Review of Systems Constitutional: + chills, + fatigue, + problem reported (decreased appetite), + weakness, No fever ENT: No nasal symptoms, No sore throat Respiratory: No cough, No dyspnea on exertion, No shortness of breath, No sputum, No wheezing Abdomen: + diarrhea, + nausea, + pain, No GI bleeding, No constipation, No vomiting Male : No dysuria, No urinary frequency Heme: No abnormal bleeding/bruising Skin: + rash, No bleeding Medications Current Inpatient Medications Medications (Trade) Dose Ordered Sig/Gabbi Route Start Time Stop Time Status Last Admin Dose Admin Acetaminophen (Tylenol Tab) 650 mg Q4H PRN PO 08/15/16 20:45 09/14/16 20:44 Al Hydrox/Mg Hydrox/Simethicone (Maalox Max Susp) 15 ml Q4H PRN PO 08/15/16 20:45 09/14/16 20:44 Magnesium Hydroxide (Milk Of Magnesia Susp) 30 ml Q6H PRN PO 08/15/16 20:45 09/14/16 20:44 Ondansetron HCl (Zofran Inj) 4 mg Q6H PRN IV 08/15/16 20:45 09/14/16 20:44 08/17/16 00:38 4 MG Cetirizine HCl 10 mg 10 mg DAILY PO 08/16/16 09:00 09/15/16 08:59 08/16/16 08:32 10 MG Methylprednisolone Sodium Succinate 60 mg/Syringe 0.96 ml @ 1.5 mls/min DAILY IV 08/16/16 09:00 09/15/16 08:59 08/17/16 08:29 1.5 MLS/MIN Sodium Chloride (Nss 1000ml) 1,000 ml @ 80 mls/hr [id number] IV 08/15/16 23:15 09/14/16 23:14 08/17/16 12:43 80 MLS/HR Acetaminophen/ Hydrocodone Bitart ([place] 5/325 Tab) 1 tab Q6 PRN PO 08/16/16 11:00 08/30/16 10:59 08/16/16 12:22 1 TAB Morphine Sulfate (MoRPHine SULFATE INJ) 4 mg Q4H PRN IV 08/17/16 05:30 08/31/16 05:29 Objective Vital Signs Date Time Temp Pulse Resp B/P Pulse Ox O2 Delivery O2 Flow Rate FiO2 08/17/16 08:34 Room Air 08/17/16 07:04 36.6 64 18 129/84 97 Room Air 08/17/16 04:59 36.5 114 20 150/96 91 Room Air 08/17/16 00:01 98 Room Air 08/16/16 23:37 36.8 62 18 145/91 98 Room Air 08/16/16 16:10 Room Air 08/16/16 15:07 37.5 68 16 110/69 98 Physical Exam General Appearance: + mild distress (+weak, +fatigued) ENT: hearing grossly normal Respiratory/Chest: lungs clear, normal breath sounds, no respiratory distress, no accessory muscle use Cardiovascular: regular rate, rhythm, no edema, no murmur Abdomen: normal bowel sounds, soft, + tenderness (diffusely) Extremities: normal inspection, no pedal edema Skin: + rash (macular, purpuric - diffusely) Laboratory Results Last 24 Hours Test 08/17/16 01:29 08/17/16 07:06 Vancomycin Level Trough 2.0 mcg/ml White Blood Count 16.23 K/uL Red Blood Count 5.20 M/uL Hemoglobin 15.6 g/dL Hematocrit 45.4 % Mean Corpuscular Volume 87.3 fL Mean Corpuscular Hemoglobin 30.0 pg Mean Corpuscular Hemoglobin Concent 34.4 g/dl Platelet Count 472 K/uL Mean Platelet Volume 8.7 fL Neutrophils (%) (Auto) 74.2 % Lymphocytes (%) (Auto) 8.7 % Monocytes (%) (Auto) 16.1 % Eosinophils (%) (Auto) 0.1 % Basophils (%) (Auto) 0.1 % Neutrophils # (Auto) 12.05 K/uL Lymphocytes # (Auto) 1.41 K/uL Monocytes # (Auto) 2.62 K/uL Eosinophils # (Auto) 0.01 K/uL Basophils # (Auto) 0.01 K/uL RDW Standard Deviation 43.8 fL RDW Coefficient of Variation 13.7 % Immature Granulocyte % (Auto) 0.8 % Immature Granulocyte # (Auto) 0.13 K/uL Sodium Level 140 mmol/L Potassium Level 3.3 mmol/L Chloride Level 106 mmol/L Carbon Dioxide Level 25 mmol/L Anion Gap 9.0 mmol/L Blood Urea Nitrogen 18 mg/dl Creatinine 0.73 mg/dl Est Creatinine Clear Calc Drug Dose 163.2 ml/min Estimated GFR () 138.3 Estimated GFR (Non- 119.3 BUN/Creatinine Ratio 24.5 Random Glucose 127 mg/dl Calcium Level 8.1 mg/dl Magnesium Level 2.1 mg/dl Assessment and Plan This is a 35 year old male who presents with rash and multiple joint pains Henoch Schnlein Purpura 08/17 patient did not have a good night abdominal pain/diarrhea, weakness Generalized fatigue, decreased PO intake we will do another day of IV steroids received 500mL bolus yesterday continue maintenance fluids will transition to oral steroids in AM 08/16 patient presented last week with the same episode was sent home with medrol dosepak states he was doing better with it, but then the rash and pain recurred, so he came back to the hospital given solu-medrol 125mg x 1 in the ER appreciate rheumatology input will do IV solu-medrol 60mg x 1 Prednisone taper starting in AM (08/17) stopped IV Dilaudid - started Percocet - october discharge with a few day supply of Percocet if pain persists FULL CODE Discharge planning: home
[2016-08-17] MEDS: POTASSIUM CHLR 10 MEQ / WTR 10 MEQ in PREMIXED WATER 100 ML IV SCH ×2 (13:44→17:40)
[2016-08-17 13:56] VITALS: BP 144/86; PULSE 87; TEMP 37
[2016-08-17] MEDS: MoRPHine SULFATE 4 MG/ML 1 ML CARP\\VIAL IV PRN ×2 (14:22→23:54)
[2016-08-17 15:39] VITALS: BP 121/86; PULSE 79; TEMP 37.1; O2SAT 94
--- NOTE | 2016-08-17 16:00 | DIAGNOSTIC IMAGING REPORT ---
ABDOMINAL ULTRASOUND COMPLETE HISTORY: Pain hematochezia. COMPARISON: None. FINDINGS: Pancreas: The pancreas demonstrates a normal echotexture. Liver: Mild fatty infiltration Gallbladder: No gallbladder wall thickening. No gallstones. CBD: 3 mm Kidneys: No hydronephrosis. Spleen: Normal in size. Aorta: Normal in caliber. IVC: Patent. IMPRESSION: Mild hepatic fatty infiltration.. Otherwise negative study Electronically signed by: Deondre Rodriguez M.D. 08/17/2016 3:58 PM Dictated Date/Time: 08/17/2016 3:57 PM
[2016-08-17 16:15] VITALS: O2SAT 94
[2016-08-18 00:38] VITALS: BP 135/91; PULSE 70; TEMP 37.3; O2SAT 96
[2016-08-18] MEDS: SODIUM CHLORIDE 0.9% 1000ML 1,000 ML IV SCH (01:20)
[2016-08-18 07:14] VITALS: BP 125/84; PULSE 59; TEMP 36.5; O2SAT 98
[2016-08-18 08:05] LABS: BASO % 0.1 %; BASO ABS # 0.01 K/uL (0-0.2); COMPLETE YES; EOS % 0.5 %; HEMATOCRIT 37.9 % (42-52); IG% 0.6 %; LYMPH % 35.5 %; LYMPH ABS # 3.09 K/uL (1.2-3.4); MEAN CELL VOLUME 86.9 fL (80-100); MEAN CORPUSCULAR HEMOGLOBIN 29.4 pg (25-34); MEAN CORPUSCULAR HGB CONC 33.8 g/dl (32-36); MEAN PLATELET VOLUME 8.6 fL (7.4-10.4); MONO % 9.3 %; PLATELET COUNT 343 K/uL (130-400); RED BLOOD COUNT 4.36 M/uL (4.7-6.1)
[2016-08-18] MEDS: CETIRIZINE HCL 10 MG TAB PO SCH (08:25)
[2016-08-18] MEDS: METHYLPREDNISOLONE IV 60 MG in SYRINGE 0 ML IV SCH (08:25)
[2016-08-18 08:32] LABS: BUN/CREATININE RATIO 23.2 (10-20); CREATININE 0.65 mg/dl (0.60-1.40); MAGNESIUM 2.3 mg/dl (1.8-2.4); POTASSIUM 3.3 mmol/L (3.5-5.1)
[2016-08-18] MEDS ORDERED: OMEP20TA PO (13:34)
[2016-08-18] MEDS ORDERED: PRED10TA PO (13:34)
[2016-08-18] MEDS ORDERED: OXYC-57 PO (13:34)
--- NOTE | 2016-08-18 13:34 | Progress Note ---
Subjective Date of Service: Aug 18, 2016. Subjective Pt evaluation today including: conversation w/ patient, physical exam, lab review, review of studies, review of inpatient medication list Saw/examined the patient in room 260 He feels better today, rash improving No diarrhea this morning good PO intake for breakfast Problem List Medical Problems: (1) Arthralgia Status: Acute (2) HSP (Henoch Schonlein purpura) Status: Acute (3) Myalgia Status: Acute Review of Systems Constitutional: No chills, No fever Respiratory: No cough, No shortness of breath, No sputum Cardiac: No chest pain, No edema, No palpitations Abdomen: No diarrhea, No nausea, No pain, No vomiting Skin: + rash Medications Current Inpatient Medications Medications (Trade) Dose Ordered Sig/Gabbi Route Start Time Stop Time Status Last Admin Dose Admin Acetaminophen (Tylenol Tab) 650 mg Q4H PRN PO 08/15/16 20:45 09/14/16 20:44 Al Hydrox/Mg Hydrox/Simethicone (Maalox Max Susp) 15 ml Q4H PRN PO 08/15/16 20:45 09/14/16 20:44 Magnesium Hydroxide (Milk Of Magnesia Susp) 30 ml Q6H PRN PO 08/15/16 20:45 09/14/16 20:44 Ondansetron HCl (Zofran Inj) 4 mg Q6H PRN IV 08/15/16 20:45 09/14/16 20:44 08/17/16 00:38 4 MG Cetirizine HCl 10 mg 10 mg DAILY PO 08/16/16 09:00 09/15/16 08:59 08/18/16 08:25 10 MG Methylprednisolone Sodium Succinate 60 mg/Syringe 0.96 ml @ 1.5 mls/min DAILY IV 08/16/16 09:00 09/15/16 08:59 08/18/16 08:25 1.5 MLS/MIN Sodium Chloride (Nss 1000ml) 1,000 ml @ 80 mls/hr [id number] IV 08/15/16 23:15 09/14/16 23:14 08/18/16 01:20 80 MLS/HR Acetaminophen/ Hydrocodone Bitart ([place] 5/325 Tab) 1 tab Q6 PRN PO 08/16/16 11:00 08/30/16 10:59 08/16/16 12:22 1 TAB Morphine Sulfate (MoRPHine SULFATE INJ) 4 mg Q4H PRN IV 08/17/16 05:30 08/31/16 05:29 08/17/16 23:54 4 MG Objective Vital Signs Date Time Temp Pulse Resp B/P Pulse Ox O2 Delivery O2 Flow Rate FiO2 08/18/16 11:59 Room Air 08/18/16 07:14 36.5 59 17 125/84 98 Room Air 08/18/16 00:38 37.3 70 18 135/91 96 Room Air 08/18/16 00:00 Room Air 08/17/16 16:15 94 Room Air 08/17/16 15:39 37.1 79 20 121/86 94 Room Air 08/17/16 13:56 37.0 87 20 144/86 Physical Exam General Appearance: no apparent distress Respiratory/Chest: lungs clear, normal breath sounds, no respiratory distress, no accessory muscle use Cardiovascular: regular rate, rhythm, no edema, no murmur Abdomen: normal bowel sounds, non tender, soft Neurologic/Psychiatric: no motor/sensory deficits, alert, normal mood/affect Skin: + pertinent finding (macular, purpuric rash - darker in color, some ulcerations are healing well) Laboratory Results Last 24 Hours Test 08/18/16 07:26 White Blood Count 8.70 K/uL Red Blood Count 4.36 M/uL Hemoglobin 12.8 g/dL Hematocrit 37.9 % Mean Corpuscular Volume 86.9 fL Mean Corpuscular Hemoglobin 29.4 pg Mean Corpuscular Hemoglobin Concent 33.8 g/dl Platelet Count 343 K/uL Mean Platelet Volume 8.6 fL Neutrophils (%) (Auto) 54.0 % Lymphocytes (%) (Auto) 35.5 % Monocytes (%) (Auto) 9.3 % Eosinophils (%) (Auto) 0.5 % Basophils (%) (Auto) 0.1 % Neutrophils # (Auto) 4.70 K/uL Lymphocytes # (Auto) 3.09 K/uL Monocytes # (Auto) 0.81 K/uL Eosinophils # (Auto) 0.04 K/uL Basophils # (Auto) 0.01 K/uL RDW Standard Deviation 43.7 fL RDW Coefficient of Variation 13.7 % Immature Granulocyte % (Auto) 0.6 % Immature Granulocyte # (Auto) 0.05 K/uL Sodium Level 139 mmol/L Potassium Level 3.3 mmol/L Chloride Level 104 mmol/L Carbon Dioxide Level 29 mmol/L Anion Gap 6.0 mmol/L Blood Urea Nitrogen 15 mg/dl Creatinine 0.65 mg/dl Est Creatinine Clear Calc Drug Dose 183.3 ml/min Estimated GFR () 145.1 Estimated GFR (Non- 125.2 BUN/Creatinine Ratio 23.2 Random Glucose 79 mg/dl Calcium Level 8.0 mg/dl Magnesium Level 2.3 mg/dl Assessment and Plan This is a 35 year old male who presents with rash and multiple joint pains Henoch Schnlein Purpura 08/18 appreciate rheumatology input patient is feeling better, no diarrhea or bloody stools today will d/c home with the percocet PRN for pain and the steroid taper as per rheumatology outpatient f/u with PCP is made for August 22 Dr. Mcfarlane may call patient for earlier appointment as an outpatient 08/17 patient did not have a good night abdominal pain/diarrhea, weakness Generalized fatigue, decreased PO intake we will do another day of IV steroids received 500mL bolus yesterday continue maintenance fluids will transition to oral steroids in AM 08/16 patient presented last week with the same episode was sent home with medrol dosepak states he was doing better with it, but then the rash and pain recurred, so he came back to the hospital given solu-medrol 125mg x 1 in the ER appreciate rheumatology input will do IV solu-medrol 60mg x 1 Prednisone taper starting in AM (08/17) stopped IV Dilaudid - started Percocet - october discharge with a few day supply of Percocet if pain persists FULL CODE Discharge planning: home
--- NOTE | 2016-08-18 13:37 | Discharge Instructions ---
Discharge Instructions Admission Reason for Admission: Generalized Maculopapular Rash Discharge Discharge Diagnosis / Problem: HSP, (IgA vasculitis) Discharge Goals Goal(s): Decrease discomfort, Improve function Activity Recommendations Activity Limitations: resume your previous activity . Instructions / Follow-Up Instructions / Follow-Up Please follow-up with Dr. David on August 22 @ 10:10AM You will be discharged with percocet as needed for pain - only take this if you need it - do NOT drive while taking this medication You will be discharged with prednisone (steroids) - use as follows: * 4 tablets (40mg) for one week * 3 tablets (30mg) the next week * 2 tablets (20mg) the week after * 1 tablet (10mg) after that * 1/2 tablet (5mg) for the final week Take prilosec over the counter with the prednisone to prevent irritation of the stomach Current Hospital Diet Patient's current hospital diet: Regular Diet Discharge Diet Recommended Diet: Regular Diet Pending Studies Studies pending at discharge: no Medical Emergencies . Who to Call and When: Medical Emergencies: If at any time you feel your situation is an emergency, please call 911 immediately. . Non-Emergent Contact Non-Emergency issues call your: Primary Care Provider, Specialist (Rheumatology ) . . "Provider Documentation" section prepared by Mae Amato. VTE Core Measure Inpt VTE Proph given/why not?: Treatment not indicated
--- NOTE | 2016-08-18 13:39 | Discharge Summary ---
Discharge Summary Date of Service Aug 18, 2016. Discharge Summary Admission Date: Aug 15, 2016 at 20:45 Discharge Date: Aug 18, 2016 Discharge Disposition: Home Principal Diagnosis: HSP (IgA vasculitis) Medication Reconciliation New Medications: Omeprazole (Omeprazole) 20 Mg Tab 1 TAB PO DAILY for 30 Days, #30 TAB 3 Refills Oxycodone/Acetaminophen 5MG/325MG (Percocet 5MG/325MG) Tab 1 TABLET PO Q4H PRN for Pain for 3 Days, #20 TAB Prednisone Tab (Prednisone) 10 Mg Tab 10 MG PO DAILY for 35 Days, #75 TAB Continued Medications: Cetirizine Hcl (Zyrtec) 10 Mg Tab 1 TAB PO DAILY for 30 Days, #30 TAB 5 Refills Discontinued Medications: Methylprednisolone (Medrol Dosepak) 4 Mg Francis 1 PKT PO DAILY, #1 PKT Admission Information Physical Exam (per Admitting): DATE OF ADMISSION: 08/15/2016 CHIEF COMPLAINT: Generalized rash. HISTORY OF PRESENT ILLNESS: This is a 35-year-old male with a past medical history significant for depression, who presents on August 09 of this year with predominant lower extremity rash going to his arms; at that time he was started on steroids, antibiotics and he was seen by rheumatology. 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 The patient says after he went home he was sick for some time; then he got better, the rash seemed to be improved, but then again the rash came back. At this time it was diffuse all over his lower extremities, trunk and upper extremities; very painful, he could not able to ambulate because of the pain, has muscle weakness and has low-grade fevers. He also noticed some blood when he blows up his nose. He denies any cough. He denies any chest pain. He gets short of breath while ambulating. Appetite is okay. He has noticed some orange colored urine. He denies any diarrhea. Currently is resting comfortably. There seems to be pain on movement. His hemodynamics are stable. ALLERGIES: No known drug allergies. PAST MEDICAL HISTORY: Depression and bipolar. PAST SURGICAL HISTORY: Not on report. FAMILY HISTORY: Significant for cancer, heart disease, hypertension, kidney disease and kidney stones. SOCIAL HISTORY: Former smoker, smoked two pack a day for 18 years, quit 6 years ago. Alcohol occasionally. Drugs, none. Single. 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 MEDICATIONS: Currently the patient is on doxycycline 100 mg p.o. b.i.d., cetirizine one tablet daily and Medrol Dosepak, he is to continue on the tapered dose. REVIEW OF SYMPTOMS: As per HPI. Rest of review of systems negative. PHYSICAL EXAMINATION: GENERAL: The patient is obese, not in distress. VITAL SIGNS: Temperature 36.9, pulse 86, respiratory rate 20, blood pressure 140/101 oxygen 96% on room air. HEENT: No pallor, no icterus. Pupils are equal, round and reactive to light. NECK: No JVD, no neck masses, no carotid bruits. CARDIOVASCULAR: S1, S2 heard, regular rate and rhythm, no murmur, no gallop. RESPIRATORY: Clear to auscultation bilaterally. No wheezing, no crackles. ABDOMEN: Soft, bowel sounds are present. Nontender. No distention. CENTRAL NERVOUS SYSTEM: Cranial nerves II-XII grossly intact. Nonfocal. EXTREMITIES: No edema. SKIN: Macular rash involving his lower extremities, trunk and his upper extremities, tender. LABORATORIES: WBC 12, hemoglobin 15.1, hematocrit 44.4, platelets 430. ESR 28. Sodium 138, potassium 3.7, chloride 101, CO2 27, BUN 20, creatinine 0.9, serum glucose 117, calcium 8.8, total bilirubin 0.5, direct bilirubin 0.1, AST 27, ALT 17, alkaline phosphatase 104, total creatinine kinase 406, lipase 94. Urinalysis positive for trace ketones, some hyaline casts. ASSESSMENT AND PLAN: This is a 35-year-old male, who recently presented with lower extremity rash, trunk and upper extremity rash and thought to be Henoch-Schonlein purpura and was discharged on doxycycline and Medrol Dosepak. He comes back with Diffuse maculopapular rash. Last admission He was seen by rheumatology and was discharged on Medrol Dosepak and doxycycline. He comes back with again flare of the rash . Maybe he needs high steroid dose for a long period of time. We will place him on IV Solu-Medrol 60 mg daily. Consult rheumatology. We will also consult dermatology and ID. We will place him on empiric antibiotics with IV vancomycin and Zosyn for now. Gentle fluids and monitor on the medical floor. Pain control. DVT prophylaxis SCDs and TEDs. DISPOSITION: Admit to medical floor. Expect to discharge to home and he will follow with his family doctor. Level 1. Full code. Hospital Course This is a 35 year old male who presents with rash and multiple joint pains Henoch Schnlein Purpura 08/18 appreciate rheumatology input patient is feeling better, no diarrhea or bloody stools today will d/c home with the percocet PRN for pain and the steroid taper as per rheumatology outpatient f/u with PCP is made for August 22 Dr. Mcfarlane may call patient for earlier appointment as an outpatient 08/17 patient did not have a good night abdominal pain/diarrhea, weakness Generalized fatigue, decreased PO intake we will do another day of IV steroids received 500mL bolus yesterday continue maintenance fluids will transition to oral steroids in AM 08/16 patient presented last week with the same episode was sent home with medrol dosepak states he was doing better with it, but then the rash and pain recurred, so he came back to the hospital given solu-medrol 125mg x 1 in the ER appreciate rheumatology input will do IV solu-medrol 60mg x 1 Prednisone taper starting in AM (08/17) stopped IV Dilaudid - started Percocet - may discharge with a few day supply of Percocet if pain persists FULL CODE Discharge planning: home Total time spent on discharge = 35 minutes This includes examination of the patient, discharge planning, medication reconciliation, and communication with other providers. Discharge Instructions Please follow-up with Dr. David on August 22 @ 10:10AM You will be discharged with percocet as needed for pain - only take this if you need it - do NOT drive while taking this medication You will be discharged with prednisone (steroids) - use as follows: * 4 tablets (40mg) for one week * 3 tablets (30mg) the next week * 2 tablets (20mg) the week after * 1 tablet (10mg) after that * 1/2 tablet (5mg) for the final week Take prilosec over the counter with the prednisone to prevent irritation of the stomach
[2016-08-18 14:14] VITALS: BP 125/84; PULSE 59; TEMP 36.5; O2SAT 98
== END 2016-08-18 14:50 | disposition home or self-care (01) | DRG 813 ==
LOC: ENRESERVDT → ENRESERVTM → C.EDB 16:15 → C.MS2W 20:45
PROVIDERS: ADMIT Family Medicine; ATTEND Family Medicine
DX: D69.0 Allergic purpura (principal); F31.9 Bipolar disorder, unspecified; Z80.9 Family history of malignant neoplasm, unspecified; Z82.49 Family history of ischemic heart disease and other diseases of the circulatory system; Z87.442 Personal history of urinary calculi; Z87.891 Personal history of nicotine dependence; Z79.899 Other long term (current) drug therapy; E66.9 Obesity, unspecified; Z68.36 Body mass index [BMI] 36.0-36.9, adult; Z84.1 Family history of disorders of kidney and ureter; R19.7 Diarrhea, unspecified

== ENCOUNTER 2017-02-28 05:39 | Emergency (ER) | payer OTHER ==
[~2017-02-28] VITALS: Ht 170.2 cm; Wt 121.0 kg
[~2017-02-28 05:39] MED LIST changes: -CYAN100073 PO; -DOXY100C PO; -GARC1TAB PO; -METH4PAK PO; -MULT-922 PO; +OMEP20TA PO; -PIPERACILL/TAZOBAC IV 4.5 GM in DEXTROSE 5% 100ML IV SCH
[2017-02-28 05:43] VITALS: BP 142/99; PULSE 83; TEMP 37; O2SAT 97; Ht 170.2 cm; Wt 121.0 kg
[2017-02-28] MEDS ORDERED: ATIVAN 1MG HOMEPACK PO ONE (05:45)
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
== END 2017-02-28 06:09 | disposition home or self-care (01) ==
LOC: EDBD 05:39 → C.EDB 05:39
DX: F41.9 Anxiety disorder, unspecified (principal); V40.6XXA Car passenger injured in collision with pedestrian or animal in traffic accident, initial encounter; Y92.488 Other paved roadways as the place of occurrence of the external cause; F32.9 Major depressive disorder, single episode, unspecified; Z80.9 Family history of malignant neoplasm, unspecified; Z82.49 Family history of ischemic heart disease and other diseases of the circulatory system; Z84.1 Family history of disorders of kidney and ureter; Z87.891 Personal history of nicotine dependence; Z79.899 Other long term (current) drug therapy